=== PATIENT | female | born 1950 | race Hispanic/Latino ===

== ENCOUNTER 2017-12-13 17:11 | Inpatient (IN) | payer SELFPAY ==
[2017-12-13 19:10] LABS: Absolute Lymphocytes (CBC) 1.3 K/uL (0.7-4.9); Absolute Monocytes 0.6 K/uL (0.1-1.3); Absolute Neutrophil 4.5 K/uL (1.8-8.0); Basophils % 0.8 % (0-1.3); Eosinophils % 1.9 % (0-4.4); Lymphocytes % 19.9 % (15.3-44.8); MCH 27.5 pg (27.0-35.0); MCV 83.3 fL (80-100); MPV 9.4 fL (7.6-11.3); Monocytes % 9.6 % (3.3-12.3); RBC Red Blood Cell Count 4.81 M/uL (3.86-4.86)
[2017-12-13 19:14] LABS: Protime INR 1.16
[2017-12-13 19:20] LABS: BUN Blood Urea Nitrogen 9 mg/dL (6-20); Bicarbonate 28 mEq/L (21-31); Glucose Level 109 mg/dL (65-120); Potassium 3.5 mEq/L (3.6-5.0); Sodium Level 136 mEq/L (135-145)
--- NOTE | 2017-12-13 19:54 | ER ---
Nurse's Notes [facility] Name: Roxana Pope Age: 67 yrs Sex: Female : 1950 Arrival Date: 12/13/2017 Time: 17:16 Bed 16 Private MD: Diagnosis: Dyspnea;Pleural effusion, not elsewhere classified Presentation: 12/13 17:29 Presenting complaint: Patient states: "The doctor told me I have fluid in my lungs on lk1 my Xray today". Transition of care: patient was not received from another setting of care. Onset of symptoms is unknown. Risk Assessment: Do you want to hurt yourself or someone else? Patient reports no desire to harm self or others. Initial Sepsis Screen: Does the patient meet any 2 criteria? No. Patient's initial sepsis screen is negative. Does the patient have a suspected source of infection? No. Patient's initial sepsis screen is negative. Care prior to arrival: None. 17:29 Method Of Arrival: Ambulatory lk1 17:29 Acuity: AAKASH 3 lk1 Historical: - Allergies: 17:30 No Known Allergies; lk1 - PMHx: 17:30 Hypertension; lk1 - PSHx: 17:30 Hernia repair; lk1 - Immunization history:: Adult Immunizations up to date. - Social history:: Smoking status: Patient/guardian denies using tobacco. Screenin:29 Abuse screen: Denies threats or abuse. Denies injuries from another. Nutritional jl7 screening: No deficits noted. Tuberculosis screening: No symptoms or risk factors identified. 19:05 Fall Risk IV access (20 points). ea Assessment: 18:27 General: Appears in no apparent distress. uncomfortable, Behavior is calm, cooperative, jl7 appropriate for age. Pain: Denies pain. Neuro: Level of Consciousness is awake, alert, obeys commands, Oriented to person, place, time, situation. Cardiovascular: Heart tones S1 S2 present. Respiratory: Airway is patent Respiratory effort is even, labored, Respiratory pattern is symmetrical, tachypnea Breath sounds with crackles in right upper lobe. GI: No signs and/or symptoms were reported involving the gastrointestinal system. : No signs and/or symptoms were reported regarding the genitourinary system. EENT: No signs and/or symptoms were reported regarding the EENT system. Derm: Skin is pink, warm \\T\\ dry. Musculoskeletal: No signs and/or symptoms reported regarding the musculoskeletal system. 19:05 General: Appears in no apparent distress. Behavior is calm, cooperative, appropriate ea for age. Pain: Denies pain. Neuro: Level of Consciousness is awake, alert, obeys commands, Oriented to person, place, time, situation. Cardiovascular: Heart tones S1 S2 present Patient's skin is warm and dry. Respiratory: Airway is patent Respiratory effort is even, unlabored, Respiratory pattern is regular, symmetrical, pt on O2 at 2 L per nc tolerating well Breath sounds with crackles in right upper lobe, left posterior upper lobe and right posterior middle lobe. GI: No signs and/or symptoms were reported involving the gastrointestinal system. : No signs and/or symptoms were reported regarding the genitourinary system. EENT: No signs and/or symptoms were reported regarding the EENT system. Derm: Skin is pink, warm \\T\\ dry. Musculoskeletal: No signs and/or symptoms reported regarding the musculoskeletal system. 20:36 Reassessment: Patient and/or family updated on plan of care and expected duration. Pain ea level reassessed. Patient is alert, oriented x 3, equal unlabored respirations, skin warm/dry/pink. Patient denies pain at this time. 21:11 Reassessment: Patient and/or family updated on plan of care and expected duration. Pain ea level reassessed. Patient is alert, oriented x 3, equal unlabored respirations, skin warm/dry/pink. Patient denies pain at this time. 22:11 Reassessment: Patient and/or family updated on plan of care and expected duration. Pain ea level reassessed. Patient is alert, oriented x 3, equal unlabored respirations, skin warm/dry/pink. Family at bedside. Patient denies pain at this time. 22:49 Reassessment: Report called to Fiona on 4th floor. Reassessment: Patient and/or family ea updated on plan of care and expected duration. Pain level reassessed. Patient is alert, oriented x 3, equal unlabored respirations, skin warm/dry/pink. Family at bedside. Patient denies pain at this time. Vital Signs: 17:32 BP 132 / 80; Pulse 101; Resp 20; Temp 98.0(TE); Pulse Ox 93% on R/A; Weight 76.2 kg lk1 (R); Height 4 ft. 11 in. (149.86 cm) (R); Pain 0/10; 18:27 BP 144 / 84; Pulse 96; Resp 26; Pulse Ox 96% on 2 lpm NC; jl7 19:00 BP 150 / 89; Pulse 93; Resp 19 S; Pulse Ox 98% on R/A; Pain 0/10; ea 20:39 BP 132 / 82; Pulse 94; Resp 18; Pulse Ox 99% ; ea 21:00 BP 141 / 86; Pulse 90; Resp 18; Pulse Ox 97% on 2 lpm NC; Pain 0/10; ea 22:12 BP 136 / 85; Pulse 92; Resp 18; Pulse Ox 98% on 2 lpm NC; Pain 0/10; ea 17:32 Body Mass Index 33.93 (76.20 kg, 149.86 cm) lk1 ED Course: 17:16 Patient arrived in ED. mr 17:29 Triage completed. lk1 17:34 Arm band placed on right wrist. lk1 18:05 Cali Boudreaux RN is Primary Nurse. jl7 18:08 Ceferino Marcano MD is Attending Physician. gs 19:04 Initial lab(s) drawn, by fl, sent to lab. Inserted saline lock: 20 gauge in left jl7 antecubital area, using aseptic technique. Blood collected. 19:05 Patient has correct armband on for positive identification. Bed in low position. Call jl7 light in reach. Side rails up X 1. Pulse ox on. NIBP on. 19:08 Report given to JESUS Alcantara. [facility] 19:53 Erinn Mendiola MD is Hospitalizing Provider. gs 19:[address] 2 20:10 CT Chest Wo Con In Process Unspecified. EDMS 21:53 Primary Nurse role handed off by Cali Boudreaux RN rg2 21:54 Maricruz Belcher RN is Primary Nurse. ea 22:02 No provider procedures requiring assistance completed. Patient admitted, IV remains in ea place. Administered Medications: No medications were administered Outcome: 19:53 Decision to Hospitalize by Provider. gs 20:00 Admitted to Med/surg accompanied by tech, via wheelchair, room 413, with chart, Report ea called to Fiona LEE 20:00 Instructed on the need for admit. 22:50 Condition: stable ea 22:59 Patient left the ED. ea Signatures: Dispatcher [employer] EDMS Ari Lane 2 Arely Marcus mr Silvia Richardson, RN RN lk1 Cali Boudreaux RN RN jl7 Yvonne Anderson 2 Maricruz Belcher RN RN ea Starr, Gregory, MD MD gs
--- NOTE | 2017-12-13 19:54 | EDPHYS ---
Physician Documentation [facility] Name: Roxana Pope Age: 67 yrs Sex: Female : 1950 Arrival Date: 12/13/2017 Time: 17:16 Bed 16 Private MD: ED Physician Ceferino Marcano HPI: 12/13 20:09 This 67 yrs old Female presents to ER via Ambulatory with complaints of gs Abnormal Lab Results. 20:09 The patient has shortness of breath at rest, during heavy activity. Onset: The gs symptoms/episode began/occurred 1 week(s) ago, and became persistent. Duration: The symptoms are continuous. The patient's shortness of breath is aggravated by exertion. Associated signs and symptoms: Pertinent positives: non-productive cough. Severity of symptoms: At their worst the symptoms were severe in the emergency department the symptoms have improved moderately. The patient has not experienced similar symptoms in the past. The patient has been recently seen by a physician: the patient's primary care provider. Historical: - Allergies: 17:30 No Known Allergies; lk1 - PMHx: 17:30 Hypertension; lk1 - PSHx: 17:30 Hernia repair; lk1 - Immunization history:: Adult Immunizations up to date. - Social history:: Smoking status: Patient/guardian denies using tobacco. ROS: 20:15 All other systems are negative. gs Exam: 20:15 Head/Face: Normocephalic, atraumatic. Eyes: Pupils equal round and reactive to light, gs extra-ocular motions intact. Lids and lashes normal. Conjunctiva and sclera are non-icteric and not injected. Cornea within normal limits. Periorbital areas with no swelling, redness, or edema. ENT: Nares patent. No nasal discharge, no septal abnormalities noted. Tympanic membranes are normal and external auditory canals are clear. Oropharynx with no redness, swelling, or masses, exudates, or evidence of obstruction, uvula midline. Mucous membranes moist. Neck: Trachea midline, no thyromegaly or masses palpated, and no cervical lymphadenopathy. Supple, full range of motion without nuchal rigidity, or vertebral point tenderness. No Meningismus. Chest/axilla: Normal chest wall appearance and motion. Nontender with no deformity. No lesions are appreciated. Cardiovascular: Regular rate and rhythm with a normal S1 and S2. No gallops, murmurs, or rubs. Normal PMI, no JVD. No pulse deficits. Abdomen/GI: Soft, non-tender, with normal bowel sounds. No distension or tympany. No guarding or rebound. No evidence of tenderness throughout. Back: No spinal tenderness. No costovertebral tenderness. Full range of motion. Skin: Warm, dry with normal turgor. Normal color with no rashes, no lesions, and no evidence of cellulitis. MS/ Extremity: Pulses equal, no cyanosis. Neurovascular intact. Full, normal range of motion. Neuro: Awake and alert, GCS 15, oriented to person, place, time, and situation. Cranial nerves II-XII grossly intact. Motor strength 5/5 in all extremities. Sensory grossly intact. Cerebellar exam normal. Normal gait. 20:15 Constitutional: The patient appears alert, awake. 20:15 ECG was reviewed by the Attending Physician. 20:15 Respiratory: Breath sounds: decreased breath sounds, that are moderate, are heard in the right posterior lower lobe. Vital Signs: 17:32 BP 132 / 80; Pulse 101; Resp 20; Temp 98.0(TE); Pulse Ox 93% on R/A; Weight 76.2 kg lk1 (R); Height 4 ft. 11 in. (149.86 cm) (R); Pain 0/10; 18:27 BP 144 / 84; Pulse 96; Resp 26; Pulse Ox 96% on 2 lpm NC; jl7 19:00 BP 150 / 89; Pulse 93; Resp 19 S; Pulse Ox 98% on R/A; Pain 0/10; ea 20:39 BP 132 / 82; Pulse 94; Resp 18; Pulse Ox 99% ; ea 21:00 BP 141 / 86; Pulse 90; Resp 18; Pulse Ox 97% on 2 lpm NC; Pain 0/10; ea 22:12 BP 136 / 85; Pulse 92; Resp 18; Pulse Ox 98% on 2 lpm NC; Pain 0/10; ea 17:32 Body Mass Index 33.93 (76.20 kg, 149.86 cm) lk1 MDM: 18:30 Patient medically screened. gs 20:15 Differential diagnosis: CHF exacerbation, Chronic Obstructive Pulmonary Disease gs Myocardial Infarction pneumonia. Data reviewed: vital signs, nurses notes, old medical records. 12/13 18:42 Order name: Basic Metabolic Panel; Complete Time: 19:51 gs 12/13 18:42 Order name: BNP; Complete Time: 19:51 12/13 18:42 Order name: CBC with Diff; Complete Time: 19:51 12/13 18:42 Order name: PT-INR; Complete Time: 19:51 gs 12/13 18:42 Order name: Troponin (emerg Dept Use Only); Complete Time: 19:51 12/13 21:15 Order name: CBC with Automated Diff EDMS 12/13 21:15 Order name: CBC with Automated Diff EDMS 12/13 21:15 Order name: Comprehensive Metabolic Panel EDMS 12/13 21:15 Order name: Comprehensive Metabolic Panel EDMS 12/13 21:15 Order name: Magnesium EDMS 12/13 21:15 Order name: Magnesium EDMS 12/13 21:15 Order name: Phosphorus EDMS 12/13 21:15 Order name: Phosphorus EDMS 12/13 21:15 Order name: Protime (+INR) EDDE 12/13 18:42 Order name: EKG; Complete Time: 18:43 12/13 18:42 Order name: Cardiac monitoring; Complete Time: 21:04 12/13 18:42 Order name: EKG - Nurse/Tech; Complete Time: 19:30 12/13 18:42 Order name: IV Saline Lock; Complete Time: 19:30 12/13 18:42 Order name: Labs collected and sent; Complete Time: 19:30 12/13 18:42 Order name: O2 Per Protocol; Complete Time: 19:30 12/13 18:42 Order name: O2 Sat Monitoring; Complete Time: 19:30 12/13 19:45 Order name: CT Chest Wo Con 12/13 21:14 Order name: CONS Pharmacy Consult EDDE 12/13 21:15 Order name: CONS Physician Consult EDDE 12/13 21:15 Order name: NPO EDDE 12/13 21:15 Order name: Protime (+INR) EDDE 12/13 21:15 Order name: PTT, Activated Partial Thromb EDMS 12/13 21:15 Order name: PTT, Activated Partial Thromb EDDE EC:15 Rate is 90 beats/min. Rhythm is regular. PA interval is normal. QRS interval is normal. gs T waves are Normal. No ST changes noted. Clinical impression: Normal ECG. Interpreted by me. Administered Medications: No medications were administered Disposition: 12/13/17 19:53 Hospitalization ordered by Erinn Mendiola for Observation. Preliminary diagnosis are Dyspnea, Pleural effusion, not elsewhere classified. - Bed requested for Telemetry/MedSurg (observation). - Status is Observation. ea - Condition is Stable. - Problem is new. - Symptoms are unchanged. UTI on Admission? No Signatures: Dispatcher [employer] EDAna Mckeon RN RN Silvia Rossi RN RN lk1 Maricruz Belcher RN RN Ceferino Issa MD MD gs Corrections: (The following items were deleted from the chart) 21:34 19:53 Hospitalization Ordered by Erinn Mendiola MD for Observation. Preliminary bb diagnosis is Dyspnea; Pleural effusion, not elsewhere classified. Bed requested for Telemetry/MedSurg (observation). Status is Observation. Condition is Stable. Problem is new. Symptoms are unchanged. UTI on Admission? No. gs 22:59 21:34 12/13/2017 19:53 Hospitalization Ordered by Erinn Mendiola MD for Observation. ea Preliminary diagnosis is Dyspnea; Pleural effusion, not elsewhere classified. Bed requested for Telemetry/MedSurg (observation). Status is Observation. Condition is Stable. Problem is new. Symptoms are unchanged. UTI on Admission? No. bb
--- NOTE | 2017-12-13 20:24 | RAD REPORT ---
EXAM DESCRIPTION: CT - Thorax Wo Con CLINICAL HISTORY: Pleural effusion. COMPARISON: None FINDINGS: Significant right breast skin thickening is noted. An irregular mass is seen in the upper outer right breast measuring 7 cm, partially imaged on this study. This is most certainly malignant i n etiology. Right axillary lymphadenopathy seen. A large right pleural effusion is noted. Multiple pleural based masses are present bilaterally compat ible with pleural metastasis. Adenopathy is seen in the mediastinum and hilum, largest in the pretrac heal space measuring 19 mm, AP window measuring 11 mm and subcarinal space measuring 13 mm. Several e nlarged lymph nodes are seen at the base of the neck. No lytic or blastic bone lesion. Cholecystectomy clips. All CT scans are performed using dose optimization technique as appropriate and may include automated exposure control or mA/KV adjustment according to patient size. IMPRESSION: Large irregular right breast mass compatible with breast malignancy. Metastatic disease to the pleural is suspected. Large right pleural effusion, also presumably metasta tic in origin. 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
[2017-12-13] MEDS ORDERED: ACETAMINOPHEN 500 MG TAB PO PRN (21:08)
[2017-12-13] MEDS ORDERED: ONDANSETRON 4 MG/2 ML VIAL IV PRN (21:08)
[2017-12-13] MEDS ORDERED: NA CHLORIDE 0.9% 1,000 ML IV SCH (22:00)
[2017-12-14] MEDS ORDERED: LIDOCAINE 1% 20 ML MDV ONE (00:03)
[2017-12-14 00:22] LABS: Urine Appearance CLEAR; Urine Bilirubin NEGATIVE (NEG); Urine Blood NEGATIVE (NEG); Urine Color YELLOW; Urine Glucose NEGATIVE (NEG); Urine Protein NEGATIVE (NEG); Urine pH 7.5 (5.0-7.0)
[2017-12-14 00:23] LABS: Urine Microscopic Reflex NO UMIC
[2017-12-14 00:37] VITALS: BMI 33.0
[2017-12-14] MEDS ORDERED: NA CHLORIDE 0.9% 1,000 ML IV SCH (02:00)
[2017-12-14 04:16] LABS: Protime INR 1.16
[2017-12-14 04:28] LABS: Absolute Lymphocytes (CBC) 1.4 K/uL (0.7-4.9); Absolute Monocytes 0.6 K/uL (0.1-1.3); Absolute Neutrophil 3.7 K/uL (1.8-8.0); Basophils % 1.1 % (0-1.3); Eosinophils % 1.9 % (0-4.4); Hematocrit 37.7 % (36.0-45.0); Lymphocytes % 23.9 % (15.3-44.8); MCH 27.7 pg (27.0-35.0); MCV 83.2 fL (80-100); MPV 9.5 fL (7.6-11.3); Monocytes % 9.9 % (3.3-12.3); RBC Red Blood Cell Count 4.53 M/uL (3.86-4.86)
[2017-12-14 04:45] VITALS: O2SAT 96
[2017-12-14 04:55] LABS: ALT/SGPT 28 IU/L (10-60); AST/SGOT 34 IU/L (10-42); Albumin 3.3 g/dL (3.2-5.5); Alkaline Phosphatase 70 IU/L (42-121); BUN Blood Urea Nitrogen 8 mg/dL (6-20); Bicarbonate 30 mEq/L (21-31); Bilirubin Total 0.7 mg/dL (0.3-1.2); Glucose Level 99 mg/dL (65-120); Magnesium 1.8 mg/dL (1.8-2.5); Potassium 3.5 mEq/L (3.6-5.0); Protein, Total 6.8 g/dL (6.0-8.3); Sodium Level 137 mEq/L (135-145)
[2017-12-14] MEDS ORDERED: MAGNESIUM SULFATE 1 gm IVPB 1 GM/100 ML BAG IV ONE (05:06)
[2017-12-14] MEDS ORDERED: KCL 20 MEQ/100 mL IVPB 20 MEQ/100 ML BAG IV SCH (06:00)
--- NOTE | 2017-12-14 06:56 | EKG ---
Test Date: 2017-12-13 Test Time: 19:15:58 Processing Clerk: IRENE MEASUREMENT RESULTS: Intervals: Rate: 90 [place]: 116 QRSD: 64 QT: 358 QTc: 437 [place]: P: 37 [place]: 116 QRS: 11 T: 31 INTERPRETIVE STATEMENTS: Normal sinus rhythm Normal ECG No previous ECG available for comparison Electronically Signed On 12-14-17 06:55:35 CDT by Owen Hernandez
[2017-12-14] MEDS ORDERED: PNEUMOCOCCAL VACCINE 0.5 ML IMVAC ONE (08:00)
--- NOTE | 2017-12-14 08:08 | P.CNS ---
Date of Consult: 12/14/17 Chief Complaint: Pleural effusion History of Present Illness: Patient is 67 years of age in complaining of cough and shortness of breath since April shortness of breath has worsened she is following up a clinic at [place] was found to have a pleural effusion is also noticed this right-sided breast mass which is no ulcerating no other medical history she does not take any medications at home denies any chest pain fever or weight loss Allergies No Known Allergies Allergy (Verified 12/14/17 00:09) Home Medications: Amlodipine [Norvasc] 10 mg PO DAILY 12/14/17 - Past Medical/Surgical History Diabetic: No -: Hypertension -: Hernia repair -: Cholecystectomy - Family History Sister Medical History: Heart disease Brother Medical History: Heart disease, Diabetes Father Medical History: Heart disease Uncle Medical History: Heart disease - Social History Alcohol use: No CD- Drugs: No Caffeine use: Yes Place of Residence: Home Review of Systems 10-point ROS is otherwise unremarkable Physical Examination Temp Pulse Resp BP Pulse Ox 97.6 F 85 18 153/73 H 96 12/14/17 04:00 12/14/17 04:00 12/14/17 04:00 12/14/17 04:00 12/14/17 04:00 General: Alert, Oriented x3 HEENT: Atraumatic Neck: Supple Respiratory: Diminished (Diminished air entry on the right side dull to percussion), Other (Patient has a ulcerating a right-sided below the axilla breast mass) Cardiovascular: No edema, Regular rate/rhythm Gastrointestinal: Normal bowel sounds, Soft and benign Laboratory Data (last 24 hrs) 12/13/17 19:00: PT 13.7 H, INR 1.16 12/13/17 19:00: WBC 6.6, Hgb 13.2, Hct 40.0, Plt Count 231 12/13/17 19:00: B-Natriuretic Peptide 16 12/13/17 19:00: Sodium 136, Potassium 3.5 L, BUN 9, Creatinine 0.47, Glucose 109 - Problems (1) Pleural effusion Current Visit: Yes Status: Acute Plan: Patient is 67 years of age admitted with a cough shortness of breath she has a significant effusion on the right side in addition to her right sided breast mass most likely this is metastatic breast cancer for large volume thoracentesis discussed with the patient risk and benefit of thoracentesis and she agrees (2) Breast cancer Current Visit: Yes Status: Acute Plan: Patient has a right-sided upper outer quadrant breast mass which is ulcerating through the skin most likely breast cancers need a surgical an oncology consult labs reviewed mildly hypokalemic vital signs appeared to be stable Qualifiers: Breast location: upper outer quadrant of breast Patient sex: female Laterality: right
[2017-12-14] MEDS ORDERED: Morphine 2 MG/2 ML SYR IV PRN (08:14)
[2017-12-14] MEDS ORDERED: VANCOMYCIN/NS 1 gm 1 GM/250 ML BAG IVPB SCH (08:15)
--- NOTE | 2017-12-14 08:23 | P.HP ---
Certification for Inpatient Patient admitted to: Inpatient With expected LOS: >2 Midnights Patient will require the following post-hospital care: None Practitioner: I am a practitioner with admitting privileges, knowledge of patient current condition, hospital course, and medical plan of care. Services: Services provided to patient in accordance with Admission requirements found in Title 42 Section 412.3 of the Code of Federal Regulations Patient History Date of Service: 12/13/17 Reason for admission: Shortness of breath History of Present Illness: Patient is a 67-year-old female who is noted to have a breast in the right upper quadrant of her breast tissue since May. Since that time the lesion has grown. She has not wanted to see anyone because she was a little concerned and she tries to take care of everything by herself. The mass would not get better. It has slowly worsened. She noticed it was ulcerating and put a Band- Aid over it. The mass has grown to a size of about 8 x 7 cm. It appears to be protruding about 3 cm from the skin. She went to see the PA at the [facility] when she was getting some shortness of breath. Her breathing was not improving and an x-ray revealed a pleural effusion which caused her to be sent to the emergency room. In the emergency room she had a CT scan which revealed a large right breast mass as well as a large malignant pleural effusion. This was not loculated and patient was admitted to our hospital for further evaluation. Patient has been seen by a loop tender in the past. She has had Pap smears and mammograms which have not shown any abnormality. She felt she was going to be fine. She did feel the mass in May but she did not feel that it was something that needed any kind of intervention. She never went to see a doctor after feeling the mass 8 months ago. Will go ahead and consult Pulmonary and Oncology. Will discuss with Oncology regarding plan of care regarding the mass. Patient may need an excisional biopsy and if this is the case we will consult General surgery for further evaluation. At this time will wait for Oncology recommendation as patient appears to have a stage IV breast cancer with a malignant pleural effusion. As far as the breast cancer goes, the tissue type remains uncertain at this time. Allergies No Known Allergies Allergy (Verified 12/14/17 00:09) Home Medications: Amlodipine [Norvasc] 10 mg PO DAILY 05/22/18 - Past Medical/Surgical History Has patient received pneumonia vaccine in the past: No Diabetic: No -: Hypertension -: Hernia repair -: Cholecystectomy - Family History Sister Medical History: Heart disease Brother Medical History: Heart disease, Diabetes Father Medical History: Heart disease Uncle Medical History: Heart disease - Social History Smoking Status: Never smoker Alcohol use: No CD- Drugs: No Caffeine use: Yes Place of Residence: Home Review of Systems 10-point ROS is otherwise unremarkable Physical Examination - Vital Signs Temperature: 97.7 F Blood Pressure: 143/83 Pulse: 84 Respirations: 16 Pulse Ox (%): 97 - Physical Exam General: Alert, In no apparent distress, Oriented x3 HEENT: Atraumatic, Normocephalic Neck: Supple, 2+ carotid pulse no bruit, JVD not distended, No Thyromegaly Respiratory: Diminished (right), Crackles/rales (right) Cardiovascular: Regular rate/rhythm, Normal S1 S2, No murmurs Capillary refill: <2 Seconds Gastrointestinal: Normal bowel sounds, Soft and benign, Non-distended, No ascites Musculoskeletal: No clubbing, No swelling, No contractures Integumentary: No rashes, No breakdown, No erythema Neurological: Normal gait, Normal speech, Normal strength at 5/5 x4 extr, Normal tone, Sensation intact, Cranial nerves 3-12 intact Lymphatics: No axilla or inguinal lymphadenopathy - Studies Laboratory Data (last 24 hrs) 12/13/17 19:00: PT 13.7 H, INR 1.16 12/13/17 19:00: WBC 6.6, Hgb 13.2, Hct 40.0, Plt Count 231 12/13/17 19:00: B-Natriuretic Peptide 16 12/13/17 19:00: Sodium 136, Potassium 3.5 L, BUN 9, Creatinine 0.47, Glucose 109 Female Exam - Breasts Breasts: Other ( patient with a large 8 x 7 cm mass) Assessment & Plan - Problems (Diagnosis) (1) Breast mass Current Visit: Yes Status: Acute (2) Pleural effusion, malignant Current Visit: Yes Status: Acute (3) Ulcer of skin of breast Current Visit: Yes Status: Acute - Plan Plan: 1. We will go ahead and consult Pulmonary as patient has a large pleural effusion. May need to get this drained and sent off for cytology. 2. I will also consult Oncology to determine how best to proceed with the breast mass. Patient will probably need an excisional biopsy. However, it appears patient has stage IV breast cancer without malignant pleural effusion. I am not sure if that would advise radiation and chemo prior to proceeding with surgical intervention. 3. Continue with antibiotics as patient has ulcerated breast mass 4. GI/DVT prophylaxis Discharge Plan: Home Plan to discharge in: Greater than 2 days - Advance Directives Does patient have a Living Will: No Does patient have a Durable POA for Healthcare: No - Code Status/Comfort Care Code Status Assessed: Yes Code Status: Full Code Critical Care: No Time Spent Managing PTS Care (In Minutes): 50
[2017-12-14] MEDS ORDERED: ENOXAPARIN 40 MG/0.4 ML SQ SCH (09:00)
[2017-12-14] MEDS ORDERED: VANCOMYCIN 1.75 GM in NA CHLORIDE 0.9% 500 ML IVPB SCH (09:00)
[2017-12-14] MEDS ORDERED: AMLODIPINE 10 MG TAB PO SCH (09:00)
--- NOTE | 2017-12-14 12:27 | P.OP ---
Date of Service: 12/14/17 (Right-sided large volume thoracentesis) Findings and Operative Technique Patient is 67 years of age admitted with cough shortness of breath large pleural effusion on the right side in addition to a right-sided breast mass Narrative report after obtaining informed consent from the patient using ultrasonic guidance, aseptic technique and a size 7 safety thoracentesis catheter approximately 1 L of straw-colored fluid was aspirated procedure terminated due to chest discomfort and cough specimen has been sent off for chemistries and cytology including Gram stain postoperative chest x-ray in 2 hr Patient to follow up with Oncology next week for markers as per Oncology
--- NOTE | 2017-12-14 12:45 | RAD REPORT ---
EXAM DESCRIPTION: US - Chest - 12/14/2017 12:38 pm FINDINGS: Sonographic assessment of the known right pleural effusion was performed. Exam was perform ed in conjunction with the referring physician for localization of chest tube placement.
[2017-12-14 13:24] LABS: Body Fluid WBC 1007 /mm^3
--- NOTE | 2017-12-14 13:45 | P.SSS ---
Patient History Date of Service: 12/14/17 Primary Care Provider: None Reason for admission: Shortness of breath Allergies No Known Allergies Allergy (Verified 12/14/17 00:09) Home Medications: Amlodipine [Norvasc*] 10 mg PO DAILY 12/14/17 - Past Medical/Surgical History Has patient received pneumonia vaccine in the past: No Diabetic: No -: Hypertension -: Hernia repair -: Cholecystectomy - Family History Sister -: Heart disease Brother -: Heart disease, Diabetes Father -: Heart disease Uncle -: Heart disease - Social History Smoking Status: Never smoker Alcohol use: No CD- Drugs: No Caffeine use: Yes Place of Residence: Home Review of Systems General: As per HPI Physical Examination - Vital Signs Temperature: 97.1 F Blood Pressure: 150/70 Pulse: 90 Respirations: 18 Pulse Ox (%): 98 - Physical Exam General: Alert, In no apparent distress HEENT: Atraumatic Neck: Supple, 2+ carotid pulse no bruit Respiratory: Normal air movement, Crackles/rales Cardiovascular: Regular rate/rhythm, Normal S1 S2 Gastrointestinal: Normal bowel sounds, Soft and benign, Non-distended, No tenderness Musculoskeletal: No tenderness Integumentary: No rashes Neurological: Normal gait, Normal speech, Normal strength at 5/5 x4 extr, Normal tone, Normal affect Lymphatics: Axilla lymphadenopathy Other Physical/Emotional Findings: Breast Exam - Right side with Red mass at the Midaxillary line. Mass is ulcerative without any discharge. Tenderness noted as well. - Studies Laboratory Data (last 24 hrs) 12/13/17 19:00: PT 13.7 H, INR 1.16 12/13/17 19:00: WBC 6.6, Hgb 13.2, Hct 40.0, Plt Count 231 12/13/17 19:00: B-Natriuretic Peptide 16 12/13/17 19:00: Sodium 136, Potassium 3.5 L, BUN 9, Creatinine 0.47, Glucose 109 - Diagnosis (Problem(s)) (1) Ulcer of skin of breast Onset Date: 12/14/17 Current Visit: Yes Status: Acute (2) Pleural effusion, malignant Onset Date: 12/14/17 Current Visit: Yes Status: Acute (3) Breast mass Onset Date: 12/14/17 Current Visit: Yes Status: Acute Treatment Summary: Overall during the hospital stay patient remained stable Patient was initially admitted to the hospital for dyspnea most likely secondary to malignant purulent effusion. Patient had a CT scan of the chest done which was consistent with metastatic disease. Patient has a ulcerative mass on the right breast in the mid axillary region. Most likely invasive ductal carcinoma. Patient had thoracentesis done here with pulmonology. Thoracentesis fluid was sent for cytology for diagnosis and staging purposes. Oncology was consulted who recommended patient have outpatient follow up in case the thoracentesis is non diagnostic patient will need a biopsy done for her breast mass. We will follow patient's lab results along with pulmonology. Patient was discharged home after the thoracentesis and was asked to follow up with pulmonology and oncology in about 1 week. - Disposition Disposition: ROUTINE DISCHARGE Condition: GOOD Diet: Regular Activity: Ad rose mary
[2017-12-14 14:08] LABS: Appearance SLT. TURBID (CLEAR); Body Fluid Source PLEURAL; Color of fluid Orange (COLORLESS)
--- NOTE | 2017-12-14 14:40 | RAD REPORT ---
EXAM DESCRIPTION: RAD - Chest Single View - 12/14/2017 2:27 pm CLINICAL HISTORY: Pleural effusion, thoracentesis COMPARISON: CT chest December 13 TECHNIQUE: AP portable chest image was obtained in expiration at 1414 hours . FINDINGS: No pneumothorax is identified. Right pleural effusion has been partially drained. There is moderate pleural fluid remaining. No significant left-sided pleural effusion. Trachea is midline. Pa tchy interstitial and alveolar opacities are present in the aerated portions of the right upper lung field. Remnant atelectasis present on the right. Heart size is normal range. IMPRESSION: No post thoracentesis pneumothorax. Prominent underlying lung parenchyma and vasculature. This is probably residual atelectasis on the ri ght. A mild failure or volume overload component is not excluded.
--- NOTE | 2017-12-14 16:08 | P.CNS ---
Date of Consult: 12/14/17 (ONCOLOGY) REASON FOR CONSULTATION: Breast mass/ pleural effusion. HPI: Patient is a 67-year-old woman who presents with worsening SOB. She was noted to have a large right pleural effusion on imaging. She reports noticing a right breast mass sometime in May but was apprehensive to seek medical attention. She reports not having a mammogram for many years. The mass eventually grew in size eventually invading the skin. She was admitted for further management for the pleural effusion for symptomatic relief. She was seen today at around 12.30 pm. Her 3 daughters, son and at bedside. She just had returned from the thoracentesis. Pleural fluid has been sent for cytology evaluation. She feels symptomatically better. Denies any pain , chest pains, cough, abd pains, N/V/D, headaches, blurry vision, gait/balance problems. a 14 point ROS was done and pertinent points as in HPI. No Known Allergies Allergy Home Medications: Amlodipine [Norvasc] 10 mg PO DAILY 12/14/17 - Past Medical/Surgical History -: Hypertension -: Hernia repair -: Cholecystectomy - Family History Denies any FH of breast cancer or any malignancies in the immediate first/ second degree relatives. - Social History Denies smoking, alcohol or drugs. Physical Examination - Vital Signs Temperature: 97.7 F Blood Pressure: 143/83 Pulse: 84 Respirations: 16 Pulse Ox (%): 97 - Physical Exam General: Alert, In no apparent distress, Oriented x3; ECOG 1 HEENT: Atraumatic, Normocephalic, no pallor, no icterus, mmm Neck: Supple, no bruit, JVD not distended, No thyromegaly Respiratory: Diminished (right), Crackles/rales (right) Cardiovascular: Regular rate/rhythm, Normal S1 S2, No murmurs Gastrointestinal: Normal bowel sounds, Soft and benign, Non-distended, No ascites Musculoskeletal: No clubbing, No swelling, No contractures Integumentary: No rashes, No breakdown, No erythema Neurological: Normal gait, Normal speech, Normal strength at 5/5, Normal tone, Sensation intact, Cranial nerves 3-12 intact Lymphatics: No axilla or inguinal lymphadenopathy Breast: Large right breast mass 6cm, fungating with skin involvement; axillary LAD+ LABS: PT 13.7 H, INR 1.16 WBC 6.6, Hgb 13.2, Hct 40.0, Plt Count 231 B-Natriuretic Peptide 16 Sodium 136, Potassium 3.5 L, BUN 9, Creatinine 0.47, Glucose 109 Assessment/Recommendations: 1. Right breast mass with large pleural effusion: Clinically presentation concerning for malignancy highly likely from the breast. She had thoracentesis now with symptomatic improvement. Cytology sent for diagnostic pathology review. Will follow up path reports and hormone receptor/Her2 farida status as well. In the event of poor yield from the cytology, she will need biopsy of the breast mass or from the lung lymphadenoapthy. Discussed about the need for further follow up and treatment without delay. She understands the risk of further disease progression if no treatment. Explained that this is likely stage IV disease for which cure is not possible. Treatment will be aimed with a palliative intent. She will follow up with me as outpatient for further care. Also advised to follow up with pulmonary as well. Cancer center contact details given to patient. Discussed with Dr Padilla.
[2017-12-14 16:27] VITALS: BP 131/63; TEMP 97
== END 2017-12-14 17:44 | disposition home or self-care (01) | DRG 598 ==
LOC: ER 17:11 → ERHOLD 21:21 → 4TH 21:55
PROVIDERS: ADMIT Hospitalist; ATTEND Hospitalist
PROC: 0W993ZX Drainage of Right Pleural Cavity, Percutaneous Approach, Diagnostic (ICD-10-PCS; principal; 2017-12-14)
DX: C50.911 Malignant neoplasm of unspecified site of right female breast (principal); J91.0 Malignant pleural effusion; I10 Essential (primary) hypertension
CPT/HCPCS: 36415; 71045; 71250; 76604; 80048; 80053; 81003; 83735; 83880; 84100; 84484; 85025; 85610; 85730; 87015; 87070; 87102; 87116; 87206; 88108; 88305; 89050; 93005; 99285; J3475; J7030

== ENCOUNTER → 2017-12-30 | Day surgery (SDC) | payer OTHER, SELFPAY ==
--- NOTE | 2017-12-30 11:57 | RAD REPORT ---
EXAM DESCRIPTION: US - Follow Up Breast Axilla Ltd - 12/30/2017 10:35 am CLINICAL HISTORY: Right breast mass. COMPARISON: Mammogram December 27, 2017. FINDINGS: A large 6-8 cm macrolobulated heterogeneous solid mass is identified as the correlate to t he prior examination. No definitive satellite lesion is identified. Imaging of the axilla failed to i dentify any clearly pathologic axillary lymph nodes. The mass extends through the skin surface. There is a congested or edematous appearance to the skin of the upper right breast. IMPRESSION: 1. Large 6-8 cm macrolobulated malignant mass of the right breast extending through the skin surface. 2. No clearly pathologic lymph nodes. BI-RAD: Category 4 suspicious ResultCode: S Category Diagnosis 0 = Incomplete: Needs Additional Imaging Evaluation, 1 = Negative, 2 = Benign, 3 = Probably Benign, 4 = Suspicious Abnormality, 5 = Highly Suspicious of Malignancy, 6 = Known Biop sy Proven Malignancy.
--- NOTE | 2017-12-30 12:14 | RAD REPORT ---
EXAM DESCRIPTION: US - Breast Core BX w/US Guidance - 12/30/2017 10:55 am CLINICAL HISTORY: Large right breast mass. COMPARISON: Ultrasound same date, mammography December 27, 2017. TECHNIQUE: Ultrasound-guided biopsy procedure, risks and alternatives were discussed with the patien t in detail. Oral and written consent were obtained. Time out procedure was performed. The patient mcknight d no contraindicated allergy or medication history. Preliminary imaging again identified a large right upper quadrant breast mass. Right breast skin was prepped and draped in the usual sterile fashion. At the inferior margin of the mass, skin and deeper tissues were anesthetized with 1% lidocaine. Under direct sonographic visualization, an 18 gauge biop sy needle was advanced. Initial biopsy placed the tip at the inferior margin. A 2 centimeter core was obtained. There were three additional core biopsies obtained using the 18 gauge needle. On each of t hese biopsies, the needle tip was advanced into the mass prior to obtaining a 2 cm core biopsy. At the conclusion of the procedure, direct pressure was applied. Hemostasis was obtained and a steril e bandage placed to the puncture site. Post-procedure care and precaution instructions were given to the patient. All obtained core biopsies were given to pathology for histologic assessment. IMPRESSION: Ultrasound-guided core biopsy of right breast mass as detailed.
== END ==
LOC: DS 09:49
PROVIDERS: ATTEND Surgery
PROC: 0HBT3ZX Excision of Right Breast, Percutaneous Approach, Diagnostic (ICD-10-PCS; principal; 2017-12-30)
DX: C50.911 Malignant neoplasm of unspecified site of right female breast (principal); Z17.0 Estrogen receptor positive status [ER+]
CPT/HCPCS: 19083; 76642; 88305

== ENCOUNTER 2021-12-25 10:14 | Inpatient (IN) | payer OTHER, SELFPAY ==
--- OUTSIDE RECORDS SUMMARY | 2021-12-25 10:19 | XMS REPORT | Continuity of Care Document ---
:1950 Author Organization [facility] t Address [address] [place] [address] Care Team Providers Name Role Phone Manuel Linares MD Attending Clinician MARYCHUY Attending Clinician Unavailable Tyrell WILBURN, Miguel Angel Attending Clinician Renetta Tovar MD Attending Clinician PIPER FITZGERALD Attending Clinician Unavailable Tara SANTILLAN Attending Clinician Unavailable Giorgio KNOX Attending Clinician Lia WILBURN, PhD, J. 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, of breast, 00 Me dicin female, female, e right right (HCCode) (HCCode) Metastatic Metastatic Disease Active [facility] breast breast 01-07 [facility] cancer cancer 00:00: of (HCCode) (HCCode) 00 Medici n e Allergies, Adverse Reactions, Alerts Allergy Allergy Status Severity Reaction(s) Onset Inactive Treating Comm ents Source Name Type Date Date Clinician NO KNOWN Allergy Active [facility] Social History Social Habit Start Date Stop Date Quantity Comments Source Exposure to Not sure [facility] SARS-CoV-2 of Medicine (event) Alcohol intake 2021-01-06 2021-01-06 Current [facility] 00:00:00 00:00:00 non-drinker of of Medicin e alcohol (finding) Tobacco use and 2018-01-07 2018-01-07 Never used [facility] exposure 00:00:00 00:00:00 of Medicine Sex [birth year] F [facility] 00:00:00 00:00:00 of Medicine Smoking Status Start Date Stop Date Source Never smoker [facility] o f Medicine Medications Ordered Filled Start Stop Current Ordering Indication Dosage Frequency Signature Comments Components Source Medication Medication Date Date Medication? Clinician (SIG) Name Name amlodipine Yes [id number] 10mg Take 10 mg [facility] (NORVASC) 6-14 by mouth Colleg e 10 MG 10:49: daily. of tablet 30 Medicin e Multiple Yes [id number] Take by [facility] 6-14 mouth. Colleg e nerals 10:49: of (MULTIVITAM 30 Medicin IN ADULT e OR) Letrozole Yes [id number] 2.5mg Take 2.5 [facility] 2.5 MG TABS 6-14 [id number] mg by Colleg e 00:00: mouth of 00 daily. Medicin e tramadol Yes [id number] 1{tbl} Take 1 [facility] (ULTRAM) 50 6-14 Tablet by Col lege MG tablet 00:00: mouth of 00 every 6 Medicin hours as e needed for Pain. Letrozole 2020- No [id number] 2.5mg Take 2.5 [facility] 2.5 MG TABS 4-14 06-14 [id number] mg by Colle ge 00:00: 00:00 mouth of 00 :00 daily. Medicin e amlodipine 2019-07 Yes [id number] 10mg Take 10 mg [facility] (NORVASC) 2-14 by mouth Colleg e 10 MG 16:52: daily. of tablet 02 Medicin e Multiple 2019-07 Yes [id number] Take by [facility] 2-14 mouth. Colleg e nerals 16:52: of (MULTIVITAM 02 Medicin IN ADULT e OR) amlodipine 2020-0 Yes [id number] 10mg Take 10 mg [facility] (NORVASC) 8-17 by mouth Colleg e 10 MG 14:26: daily. of tablet 17 Medicin e Multiple 2019-0 Yes [id number] Take by [facility] 8-17 mouth. Colleg e nerals 14:26: of (MULTIVITAM 17 Medicin IN ADULT e OR) amlodipine 2019-0 Yes [id number] 10mg Take 10 mg [facility] (NORVASC) 7-14 by mouth Colleg e 10 MG 14:19: daily. of tablet 33 Medicin e Multiple 2019-0 Yes [id number] Take by [facility] 7-14 mouth. Colleg e nerals 14:19: of (MULTIVITAM 33 Medicin IN ADULT e OR) amlodipine 0 Yes [id number] 10mg Take 10 mg [facility] (NORVASC) 6-30 by mouth Colleg e 10 MG 14:03: daily. of tablet 10 Medicin e Multiple 0 Yes [id number] Take by [facility] 6-30 mouth. Colleg e nerals 14:03: of (MULTIVITAM 10 Medicin IN ADULT e OR) amlodipine 0 Yes [id number] 10mg Take 10 mg [facility] (NORVASC) 6-23 by mouth Colleg e 10 MG 14:03: daily. of tablet 50 Medicin e Multiple 2019-0 Yes [id number] Take by [facility] 6-23 mouth. Colleg e nerals 14:03: of (MULTIVITAM 50 Medicin IN ADULT e OR) amlodipine 2019-0 Yes [id number] 10mg Take 10 mg [facility] (NORVASC) 6-15 by mouth Colleg e 10 MG 15:47: daily. of tablet 59 Medicin e Multiple 2019-0 Yes [id number] Take by [facility] 6-15 mouth. Colleg e nerals 15:47: of (MULTIVITAM 59 Medicin IN ADULT e OR) amlodipine 2019-0 Yes [id number] 10mg Take 10 mg [facility] (NORVASC) 6-15 by mouth Colleg e 10 MG 15:47: daily. of tablet 59 Medicin e Multiple 2019-0 Yes [id number] Take by [facility] 6-15 mouth. Colleg e nerals 15:47: of (MULTIVITAM 59 Medicin IN ADULT e OR) amlodipine 0 Yes [id number] 10mg Take 10 mg [facility] (NORVASC) 6-09 by mouth Colleg e 10 MG 14:36: daily. of tablet 20 Medicin e Multiple 0 Yes [id number] Take by [facility] 6-09 mouth. Colleg e nerals 14:36: of (MULTIVITAM 20 Medicin IN ADULT e OR) amlodipine 0 Yes [id number] 10mg Take 10 mg [facility] (NORVASC) 6-02 by mouth Colleg e 10 MG 14:27: daily. of tablet 46 Medicin e Multiple 0 Yes [id number] Take by [facility] 6-02 mouth. Colleg e nerals 14:27: of (MULTIVITAM 46 Medicin IN ADULT e OR) amlodipine Yes [id number] 10mg Take 10 mg [facility] (NORVASC) 5-26 by mouth Colleg e 10 MG 14:34: daily. of tablet 48 Medicin e Multiple Yes [id number] Take by [facility] 5-26 mouth. Colleg e nerals 14:34: of (MULTIVITAM 48 Medicin IN ADULT e OR) amlodipine Yes [id number] 10mg Take 10 mg [facility] (NORVASC) 5-15 by mouth Colleg e 10 MG 19:16: daily. of tablet 15 Medicin e Multiple Yes [id number] Take by [facility] 5-15 mouth. Colleg e nerals 19:16: of (MULTIVITAM 15 Medicin IN ADULT e OR) amlodipine Yes [id number] 10mg Take 10 mg [facility] (NORVASC) 5-15 by mouth Colleg e 10 MG 19:16: daily. of tablet 15 Medicin e Multiple 0 Yes [id number] Take by [facility] 5-15 mouth. Colleg e nerals 19:16: of (MULTIVITAM 15 Medicin IN ADULT e OR) amoxicillin 0 2020- No 1{tbl} Take 1 Tab [facility] -clavulanat 5-09 05-20 by mouth Col lege e 00:00: 04:59 two times of (AUGMENTIN) 00 :00 daily for Med icin 875-125 MG 10 days. e per tablet amoxicillin 2020-0 2020- No 1{tbl} Take 1 Tab [facility] -clavulanat 5-09 05-20 by mouth Col lege e 00:00: 04:59 two times of (AUGMENTIN) 00 :00 daily for Med icin 875-125 MG 10 days. e per tablet Letrozole 2020-0 Yes [id number] 2.5mg Take 2.5 [facility] 2.5 MG TABS 4-17 [id number] mg by Colleg e 00:00: mouth of 00 daily. Medicin e Letrozole 2020-0 Yes [id number] 2.5mg Take 2.5 [facility] 2.5 MG TABS 4-17 [id number] mg by Colleg e 00:00: mouth of 00 daily. Medicin e Letrozole 2020-0 Yes [id number] 2.5mg Take 2.5 [facility] 2.5 MG TABS 4-17 [id number] mg by Colleg e 00:00: mouth of 00 daily. Medicin e Letrozole 2020-0 Yes [id number] 2.5mg Take 2.5 [facility] 2.5 MG TABS 4-17 [id number] mg by Colleg e 00:00: mouth of 00 daily. Medicin e Letrozole 2020-0 Yes [id number] 2.5mg Take 2.5 [facility] 2.5 MG TABS 4-17 [id number] mg by Colleg e 00:00: mouth of 00 daily. Medicin e Letrozole 2020-0 Yes [id number] 2.5mg Take 2.5 [facility] 2.5 MG TABS 4-17 [id number] mg by Colleg e 00:00: mouth of 00 daily. Medicin e Letrozole 2020-0 Yes [id number] 2.5mg Take 2.5 [facility] 2.5 MG TABS 4-17 [id number] mg by Colleg e 00:00: mouth of 00 daily. Medicin e Letrozole 2020-0 Yes [id number] 2.5mg Take 2.5 [facility] 2.5 MG TABS 4-17 [id number] mg by Colleg e 00:00: mouth of 00 daily. Medicin e Letrozole 2020-0 Yes [id number] 2.5mg Take 2.5 [facility] 2.5 MG TABS 4-17 [id number] mg by Colleg e 00:00: mouth of 00 daily. Medicin e Letrozole 2020-0 Yes [id number] 2.5mg Take 2.5 [facility] 2.5 MG TABS 4-17 [id number] mg by Colleg e 00:00: mouth of 00 daily. Medicin e Letrozole 2020-0 Yes [id number] 2.5mg Take 2.5 [facility] 2.5 MG TABS 4-17 [id number] mg by Colleg e 00:00: mouth of 00 daily. Medicin e Letrozole 2020-0 Yes [id number] 2.5mg Take 2.5 [facility] 2.5 MG TABS 4-17 [id number] mg by Colleg e 00:00: mouth of 00 daily. Medicin e amlodipine 2020-0 Yes [id number] 10mg Take 10 mg [facility] (NORVASC) 2-25 by mouth Colleg e 10 MG 14:56: daily. of tablet 53 Medicin e Multiple 2020-0 Yes [id number] Take by [facility] 2-25 mouth. Colleg e nerals 14:56: of (MULTIVITAM 53 Medicin IN ADULT e OR) amlodipine 2019-0 Yes [id number] 10mg Take 10 mg [facility] (NORVASC) 2-18 by mouth Colleg e 10 MG 17:01: daily. of tablet 23 Medicin e Multiple 2020-0 Yes [id number] Take by [facility] 2-18 mouth. Colleg e nerals 17:01: of (MULTIVITAM 23 Medicin IN ADULT e OR) Vitamin D, 2018-07 Yes 1.25mg Take 1.25 [facility] 2-17 mg by [facility], 1.25 00:00: mouth of MG (50824 00 every 7 Medicin UT) CAPS days. e Vitamin D, 2018-07 Yes 1.25mg Take 1.25 [facility] Ergocalcife 2-17 mg by [facility], 1.25 00:00: mouth of MG (88481 00 every 7 Medicin UT) CAPS days. e Vitamin D, 2018-07 Yes 1.25mg Take 1.25 [facility] Ergocalcife 2-17 mg by [facility], 1.25 00:00: mouth of MG (41732 00 every 7 Medicin UT) CAPS days. e Vitamin D, 2018-07 Yes 1.25mg Take 1.25 [facility] Ergocalcife 2-17 mg by [facility], 1.25 00:00: mouth of MG (65026 00 every 7 Medicin UT) CAPS days. e Vitamin D, 2018-07 Yes 1.25mg Take 1.25 [facility] Ergocalcife 2-17 mg by [facility], 1.25 00:00: mouth of MG (88238 00 every 7 Medicin UT) CAPS days. e Vitamin D, 2018-07 Yes 1.25mg Take 1.25 [facility] Ergocalcife 2-17 mg by [facility], 1.25 00:00: mouth of MG (30570 every 7 Medicin UT) CAPS days. e Vitamin D, 2018-07 Yes 1.25mg Take 1.25 [facility] Ergocalcife 2-17 mg by [facility], 1.25 00:00: mouth of MG (73963 every 7 Medicin UT) CAPS days. e Vitamin D, 2018-07 Yes 1.25mg Take 1.25 [facility] Ergocalcife 2-17 mg by [facility], 1.25 00:00: mouth of MG ( every 7 Medicin UT) CAPS days. e Vitamin D, 2018-07 Yes 1.25mg Take 1.25 [facility] Ergocalcife 2-17 mg by [facility], 1.25 00:00: mouth of MG (41826 every 7 Medicin [place]) CAPS days. e Vitamin D, 2018-07 2020- No 1.25mg Take 1.25 [facility] Ergocalcife 2-17 06-23 mg by [facility], 1.25 00:00: 00:00 mouth of MG ( 00 :00 every 7 Medicin UT) CAPS days. e amlodipine Yes [id number] 10mg Take 10 mg [facility] (NORVASC) 9-03 by mouth Colleg e 10 MG 16:25: daily. of tablet 23 Medicin e Multiple Yes [id number] Take by [facility] 9-03 mouth. Colleg e nerals 16:25: of (MULTIVITAM 23 Medicin IN ADULT e OR) tramadol Yes 50mg Take 1 Tab [facility] (ULTRAM) 50 8-07 by mouth [facility] MG tablet 00:00: every 6 of 00 hours as Medicin needed for e Pain. tramadol Yes 50mg Take 1 Tab [facility] (ULTRAM) 50 8-07 by mouth [facility] MG tablet 00:00: every 6 of 00 hours as Medicin needed for e Pain. tramadol 2019-0 Yes 50mg Take 1 Tab [facility] (ULTRAM) 50 8-07 by mouth [facility] MG tablet 00:00: every 6 of 00 hours as Medicin needed for e Pain. tramadol 2019-0 Yes 50mg Take 1 Tab [facility] (ULTRAM) 50 8-07 by mouth [facility] MG tablet 00:00: every 6 of 00 hours as Medicin needed for e Pain. tramadol 2019-0 Yes 50mg Take 1 Tab [facility] (ULTRAM) 50 8-07 by mouth [facility] MG tablet 00:00: every 6 of 00 hours as Medicin needed for e Pain. tramadol 2019-0 Yes 50mg Take 1 Tab [facility] (ULTRAM) 50 8-07 by mouth [facility] MG tablet 00:00: every 6 of 00 hours as Medicin needed for e Pain. tramadol 2019-0 Yes 50mg Take 1 Tab [facility] (ULTRAM) 50 8-07 by mouth [facility] MG tablet 00:00: every 6 of 00 hours as Medicin needed for e Pain. tramadol 2019-0 2020- No 50mg Take 1 Tab [facility] (ULTRAM) 50 8-07 06-09 by mouth Col lege MG tablet 00:00: 00:00 every 6 of 00 :00 hours as Medicin needed for e Pain. Letrozole 2019-0 Yes [id number] 2.5mg Take 2.5 [facility] 2.5 MG TABS 3-26 [id number] mg by Colleg e 00:00: mouth of 00 daily. Medicin e Letrozole 2019-0 Yes [id number] 2.5mg Take 2.5 [facility] 2.5 MG TABS 3-26 [id number] mg by Colleg e 00:00: mouth of 00 daily. Medicin e Letrozole 2019-0 Yes [id number] 2.5mg Take 2.5 [facility] 2.5 MG TABS 3-26 [id number] mg by Colleg e 00:00: mouth of 00 daily. Medicin e Vital Signs Vital Name Observation Time Observation Value Comments Source Systolic blood 2021-01-06 15:48:00 146 mm[Hg] [facility] Diastolic blood 2021-01-06 15:48:00 80 mm[Hg] [facility] pressure Medicine Heart rate 2021-01-06 15:48:00 85 /min [facility] ollege of Medicine Body temperature 2021-01-06 15:48:00 36.11 [facility] Body height 2021-01-06 15:48:00 149.9 cm [facility] ollege of Medicine Body weight 2021-01-06 15:48:00 69.854 kg [facility] ollege of [facility] BMI 2021-01-06 15:48:00 31.10 kg/m2 [facility] ol[facility] of Medicine Systolic blood 2020-07-08 16:51:00 160 mm[Hg] [facility] of pressure Medicine Diastolic blood 2020-07-08 16:51:00 81 mm[Hg] [facility] pressure Medicine Heart rate 2020-07-08 16:51:00 93 /min [facility] ollege of [facility] Body temperature 2020-07-08 16:51:00 36.61 [facility] Body height 2020-07-08 16:51:00 149.9 cm [facility] ollege of Medicine Body weight 2020-07-08 16:51:00 [facility] BMI 2020-07-08 16:51:00 33.53 [facility]2 [facility] Systolic blood 2020-03-11 14:25:00 158 mm[Hg] [facility] of pressure Medicine Diastolic blood 2020-03-11 14:25:00 78 mm[Hg] [facility] pressure Medicine Heart rate 2020-03-11 14:25:00 87 /min [facility] ol[facility] of Medicine Body temperature 2020-03-11 14:25:00 36.72 [facility] Body height 2020-03-11 14:25:00 149.9 cm [facility] ollege of Medicine Systolic blood 2020-02-06 14:18:00 151 mm[Hg] [facility] of pressure Medicine Diastolic blood 2020-02-06 14:18:00 76 mm[Hg] [facility] of pressure Medicine Heart rate 2020-02-06 14:18:00 96 /min [facility] ol[facility] of Medicine Body temperature 2020-02-06 14:18:00 36.72 [facility] Respiratory rate 2020-02-06 14:18:00 18 /min [facility] Systolic blood 2020-01-23 14:01:00 145 mm[Hg] [facility] pressure Medicine Diastolic blood 2020-01-23 14:01:00 84 mm[Hg] [facility] pressure Medicine Heart rate 2020-01-23 14:01:00 97 /min [facility] ollege of Medicine Body temperature 2020-01-23 14:01:00 36.72 [facility] Respiratory rate 2020-01-23 14:01:00 18 /min [facility] Body weight 2020-01-23 14:01:00 78.382 kg [facility] ol[facility] of Medicine BMI 2020-01-23 14:01:00 34.90 kg/m2 [facility] ol[facility] of Medicine Systolic blood 2020-01-16 14:01:00 148 mm[Hg] [facility] pressure Medicine Diastolic blood 2020-01-16 14:01:00 83 mm[Hg] [facility] Medicine Heart rate 2020-01-16 14:01:00 91 /min [facility] ol[facility] of Medicine Body temperature 2020-01-16 14:01:00 36.61 [facility] Body height 2020-01-16 14:01:00 149.9 cm [facility] of Medicine Body weight 2020-01-16 14:01:00 78.382 kg [facility] of Medicine BMI 2020-01-16 14:01:00 34.90 kg/m2 [facility] of Medicine Systolic blood 2020-01-08 15:48:00 124 mm[Hg] [facility] Medicine Diastolic blood 2020-01-08 15:48:00 78 mm[Hg] [facility] Medicine Heart rate 2020-01-08 15:48:00 105 /min [facility] ollege of Medicine Body temperature 2020-01-08 15:48:00 36.56 [facility] Body height 2020-01-08 15:47:00 149.9 cm [facility] ollege of Medicine Body weight 2020-01-08 15:47:00 78.019 kg [facility] ol[facility] of Medicine BMI 2020-01-08 15:47:00 34.74 kg/m2 [facility] ol[facility] of Medicine Systolic blood 2020-01-02 14:35:00 142 mm[Hg] [facility] of pressure Medicine Diastolic blood 2020-01-02 14:35:00 90 mm[Hg] [facility] pressure Medicine Heart rate 2020-01-02 14:35:00 91 /min [facility] ol[facility] of Medicine Body temperature 2020-01-02 14:35:00 36.33 [facility] Respiratory rate 2020-01-02 14:35:00 18 /min [facility] Body height 2020-01-02 14:35:00 149.9 cm [facility] ollege of [facility] Body weight 2020-01-02 14:35:00 78.472 kg [facility] ollege of [facility] BMI 2020-01-02 14:35:00 34.94 kg/m2 [facility] ol[facility] of Medicine Systolic blood 2019-12-26 14:25:00 160 mm[Hg] [facility] pressure Medicine Diastolic blood 2019-12-26 14:25:00 83 mm[Hg] [facility] Medicine Heart rate 2019-12-26 14:25:00 90 /min [facility] ollege of [facility] Body temperature 2019-12-26 14:25:00 36.56 [facility] Body height 2019-12-26 14:25:00 149.9 cm [facility] ollege of [facility] Body weight 2019-12-26 14:25:00 79.561 kg [facility] ollege of [facility] BMI 2019-12-26 14:25:00 35.43 kg/m2 [facility] ol[facility] of Medicine Systolic blood 2019-12-19 14:33:00 143 mm[Hg] [facility] Medicine Diastolic blood 2019-12-19 14:33:00 73 mm[Hg] [facility] pressure Medicine Heart rate 2019-12-19 14:33:00 96 /min [facility] ol[facility] of Medicine Body temperature 2019-12-19 14:33:00 36.89 [facility] Respiratory rate 2019-12-19 14:33:00 16 /min [facility] Body height 2019-12-19 14:33:00 149.9 cm [facility] C ollege of Medicine Body weight 2019-12-19 14:33:00 79.561 kg [facility] ollege of Medicine BMI 2019-12-19 14:33:00 35.43 kg/m2 [facility] C ollege of Medicine Systolic blood 2019-12-08 19:14:00 145 mm[Hg] [facility] of pressure Medicine Diastolic blood 2019-12-08 19:14:00 79 mm[Hg] [facility] of pressure Medicine Heart rate 2019-12-08 19:14:00 103 /min [facility] C ollege of Medicine Body temperature 2019-12-08 19:14:00 36.89 [facility] Body height 2019-12-08 19:14:00 149.9 cm [facility] C ollege of Medicine Systolic blood 2019-12-05 14:58:00 152 mm[Hg] [facility] of pressure Medicine Diastolic blood 2019-12-05 14:58:00 75 mm[Hg] [facility] of pressure Medicine Heart rate 2019-12-05 14:58:00 104 /min [facility] C ollege of Medicine Body temperature 2019-12-05 14:58:00 36.72 [facility] Body height 2019-12-05 14:58:00 149.9 cm [facility] ollege of Medicine Body weight 2019-12-05 14:58:00 80.287 kg [facility]lege of Medicine BMI 2019-12-05 14:58:00 35.75 kg/m2 [facility] C ollege of Medicine Systolic blood 2019-09-19 14:55:00 164 mm[Hg] [facility] of pressure Medicine Diastolic blood 2019-09-19 14:55:00 98 mm[Hg] [facility] pressure Medicine Heart rate 2019-09-19 14:55:00 95 /min [facility] ollege of Medicine Body temperature 2019-09-19 14:55:00 36.67 [facility] Body height 2019-09-19 14:55:00 151.1 cm [facility] ollege of Medicine Body weight 2019-09-19 14:55:00 78.064 kg [facility]lege of Medicine BMI 2019-09-19 14:55:00 34.18 kg/m2 [facility] Systolic blood 2019-09-12 17:00:00 153 mm[Hg] [facility] pressure Medicine Diastolic blood 2019-09-12 17:00:00 87 mm[Hg] [facility] Medicine Heart rate 2019-09-12 17:00:00 103 /min [facility] Body temperature 2019-09-12 17:00:00 36.67 [facility] Body height 2019-09-12 17:00:00 151.1 cm [facility] Body weight 2019-09-12 17:00:00 78.563 kg [facility] BMI 2019-09-12 17:00:00 34.40 kg/m2 [facility] Systolic blood 2019-03-28 16:22:00 143 mm[Hg] [facility] Medicine Diastolic blood 2019-03-28 16:22:00 79 mm[Hg] [facility] Medicine Heart rate 2019-03-28 16:22:00 100 /min [facility] Body temperature 2019-03-28 16:22:00 36.83 [facility] Respiratory rate 2019-03-28 16:22:00 16 /min [facility] Body height 2019-03-28 16:22:00 151.1 cm [facility] Body weight 2019-03-28 16:22:00 80.287 kg [facility] BMI 2019-03-28 16:22:00 35.15 kg/m2 [facility] Procedures This patient has no known procedures. Plan of Care Planned Activity Planned Date Details Comments Source Future Scheduled 2021-01-06 Screening for [facility] Test 14:24:14 malignant neoplasm of Medici ne of breast (procedure) [code = 084132534] Future Scheduled 2021-01-06 Screening for [facility] Test 12:36:46 malignant neoplasm of Medici ne of colon (procedure) [code = 729699282] Future Scheduled 2021-01-06 COVID-19 Vaccine (1) [facility] Test 12:36:46 [code = COVID-19 of Medicine Vaccine (1)] Future Scheduled 2021-01-06 TETANUS SHOT (ADULT) [facility] 12:36:46 [code = TETANUS SHOT of Medi cine (ADULT)] Future Scheduled 2021-01-06 BMI FOLLOW UP PLAN [employer] Test 12:36:46 [code = BMI FOLLOW of Medici ne UP PLAN] Future Scheduled 2021-01-06 Hepatitis C [facility] Test 12:36:46 screening of Medicine (procedure) [code = 897613553] Future Scheduled 2021-01-06 ZOSTER VACCINE (1 of [facility] Test 12:36:46 2) [code = ZOSTER of Medicin e VACCINE (1 of 2)] Future Scheduled 2021-01-06 MEDICARE AWV [facility] 12:36:46 (Initial) [code = of Medicin e MEDICARE AWV (Initial)] Future Scheduled 2021-01-06 FALL SCREEN [code = [employer] Test 12:36:46 FALL SCREEN] of Medicine Future Scheduled 2021-01-06 PNEUMOVAX >=65 [facility] Test 12:36:46 (PPSV23) [code = of Medicine PNEUMOVAX >=65 (PPSV23)] Future Scheduled 2021-01-06 FLU VACCINE > 6 [facility] C [facility]lege Test 12:36:46 MONTHS [code = FLU of Medici ne VACCINE > 6 MONTHS] Diagnostic Test 2021-01-06 MAMMO DIAGNOSTIC Expected: [facility] [employer] Pending 00:00:00 BILAT (US/BIOP IF 01/06/2021, of Medicin e NEEDED) [code = Expires: 93968-5] 07/08/2022 Diagnostic Test 2020-04-11 CT CHEST WO CONTRAST Expected: [employer] Pending 00:00:00 [code = 57909-8] 04/11/2020 of Medicine (Approximate), Expires: 10/09/2020 Future Scheduled CULTURE, ANAEROBIC Ordered: [employer] Test [code = 635-3] 12/05/2019 of Medicine Future Scheduled CULTURE, AEROBIC Ordered: [facility] Test [code = 634-6] 12/05/2019 of Medicine Future Scheduled COLON CANCER [facility] [employer] Test SCREENING: of Medicine COLONOSCOPY [code = COLON CANCER SCREENING: COLONOSCOPY] Future Scheduled MAMMOGRAM ANNUAL [facility] Test [code = MAMMOGRAM of Medicin e ANNUAL] Future Scheduled TETANUS SHOT (ADULT) [employer] Test [code = TETANUS SHOT of Medi cine (ADULT)] Future Scheduled BMI FOLLOW UP PLAN [employer] Test [code = BMI FOLLOW of Medici ne UP PLAN] Future Scheduled HEPATITIS C [employer] [facility] SCREENING [code = of Medicin e HEPATITIS C SCREENING] Future Scheduled MEDICARE AWV [facility] [employer] Test (Initial) [code = of Medicin e MEDICARE AWV (Initial)] Future Scheduled FALL SCREEN [code = [employer] [facility] FALL SCREEN] of Medicine Future Scheduled PNEUMOVAX >=65 [facility] [employer] Test (PPSV23) [code = of Medicine PNEUMOVAX >=65 (PPSV23)] Future Scheduled PREVNAR >= 65 [facility] [employer] [facility] Test (PCV13) [code = of Medicine PREVNAR >= 65 (PCV13)] Future Scheduled FLU VACCINE > 6 [employer] Test MONTHS [code = FLU of Medici ne VACCINE > 6 MONTHS] Future Scheduled COLON CANCER [facility] [employer] Test SCREENING: of Medicine COLONOSCOPY [code = COLON CANCER SCREENING: COLONOSCOPY] Future Scheduled MAMMOGRAM ANNUAL [facility] Test [code = MAMMOGRAM of Medicin e ANNUAL] Future Scheduled TETANUS SHOT (ADULT) [employer] Test [code = TETANUS SHOT of Medi cine (ADULT)] Future Scheduled BMI FOLLOW UP PLAN [employer] Test [code = BMI FOLLOW of Medici ne UP PLAN] Future Scheduled HEPATITIS C [facility] [employer] Test SCREENING [code = of Medicin e HEPATITIS C SCREENING] Future Scheduled MEDICARE AWV [facility] [employer] Test (Initial) [code = of Medicin e MEDICARE AWV (Initial)] Future Scheduled FALL SCREEN [code = [employer] [facility] FALL SCREEN] of Medicine Future Scheduled PNEUMOVAX >=65 [facility] [employer] Test (PPSV23) [code = of Medicine PNEUMOVAX >=65 (PPSV23)] Future Scheduled PREVNAR >= 65 [facility] [employer] [facility] Test (PCV13) [code = of Medicine PREVNAR >= 65 (PCV13)] Future Scheduled FLU VACCINE > 6 [facility] [employer] Test MONTHS [code = FLU of Medici ne VACCINE > 6 MONTHS] Future Scheduled COLON CANCER [facility] [employer] Test SCREENING: of Medicine COLONOSCOPY [code = COLON CANCER SCREENING: COLONOSCOPY] Future Scheduled MAMMOGRAM ANNUAL [employer] Test [code = MAMMOGRAM of Medicin e ANNUAL] Future Scheduled TETANUS SHOT (ADULT) [employer] Test [code = TETANUS SHOT of Medi cine (ADULT)] Future Scheduled BMI FOLLOW UP PLAN [employer] Test [code = BMI FOLLOW of Medici ne UP PLAN] Future Scheduled HEPATITIS C [facility] [employer] Test SCREENING [code = of Medicin e HEPATITIS C SCREENING] Future Scheduled MEDICARE AWV [facility] [employer] Test (Initial) [code = of Medicin e MEDICARE AWV (Initial)] Future Scheduled FALL SCREEN [code = [employer] [facility] FALL SCREEN] of Medicine Future Scheduled PNEUMOVAX >=65 [facility] [employer] Test (PPSV23) [code = of Medicine PNEUMOVAX >=65 (PPSV23)] Future Scheduled PREVNAR >= 65 [employer] Test (PCV13) [code = of Medicine PREVNAR >= 65 (PCV13)] Future Scheduled FLU VACCINE > 6 [employer] Test MONTHS [code = FLU of Medici ne VACCINE > 6 MONTHS] Future Scheduled COLON CANCER [facility] [employer] Test SCREENING: of Medicine COLONOSCOPY [code = COLON CANCER SCREENING: COLONOSCOPY] Future Scheduled MAMMOGRAM ANNUAL [facility] Test [code = MAMMOGRAM of Medicin e ANNUAL] Future Scheduled TETANUS SHOT (ADULT) [employer] Test [code = TETANUS SHOT of Medi cine (ADULT)] Future Scheduled BMI FOLLOW UP PLAN [employer] Test [code = BMI FOLLOW of Medici ne UP PLAN] Future Scheduled HEPATITIS C [facility] [employer] Test SCREENING [code = of Medicin e HEPATITIS C SCREENING] Future Scheduled MEDICARE AWV [employer] Test (Initial) [code = of Medicin e MEDICARE AWV (Initial)] Future Scheduled FALL SCREEN [code = [employer] [facility] FALL SCREEN] of Medicine Future Scheduled PNEUMOVAX >=65 [employer] Test (PPSV23) [code = of Medicine PNEUMOVAX >=65 (PPSV23)] Future Scheduled PREVNAR >= 65 [employer] Test (PCV13) [code = of Medicine PREVNAR >= 65 (PCV13)] Future Scheduled FLU VACCINE > 6 [facility] [employer] Test MONTHS [code = FLU of Medici ne VACCINE > 6 MONTHS] Future Scheduled CBC W/AUTO DIFF WITH Ordered: [employer] Test PLATELETS [code = 03/28/2019 of Medicin e 96338-8] Future Scheduled COLON CANCER [facility] [employer] Test SCREENING: of Medicine COLONOSCOPY [code = COLON CANCER SCREENING: COLONOSCOPY] Future Scheduled MAMMOGRAM ANNUAL [facility] Test [code = MAMMOGRAM of Medicin e ANNUAL] Future Scheduled TETANUS SHOT (ADULT) [employer] Test [code = TETANUS SHOT of Medi cine (ADULT)] Future Scheduled BMI FOLLOW UP PLAN [employer] Test [code = BMI FOLLOW of Medici ne UP PLAN] Future Scheduled HEPATITIS C [facility] [employer] Test SCREENING [code = of Medicin e HEPATITIS C SCREENING] Future Scheduled MEDICARE AWV [facility] [employer] Test (Initial) [code = of Medicin e MEDICARE AWV (Initial)] Future Scheduled FALL SCREEN [code = [employer] [facility] FALL SCREEN] of Medicine Future Scheduled PNEUMOVAX >=65 [employer] Test (PPSV23) [code = of Medicine PNEUMOVAX >=65 (PPSV23)] Future Scheduled PREVNAR >= 65 [facility] [employer] [facility] Test (PCV13) [code = of Medicine PREVNAR >= 65 (PCV13)] Future Scheduled FLU VACCINE > 6 [facility] [employer] Test MONTHS [code = FLU of Medici ne VACCINE > 6 MONTHS] Future Scheduled COMPREHENSIVE Ordered: [facility] [employer] Test METABOLIC PANEL 03/28/2019 of Medicine [code = 08792-7] Future Scheduled CANCER ANTIGEN 27.29 Ordered: [employer] Test [code = 68023-9] 03/28/2019 of Medicine Future Scheduled COLON CANCER [facility] [employer] Test SCREENING: of Medicine COLONOSCOPY [code = COLON CANCER SCREENING: COLONOSCOPY] Future Scheduled MAMMOGRAM ANNUAL [facility] Test [code = MAMMOGRAM of Medicin e ANNUAL] Future Scheduled TETANUS SHOT (ADULT) [employer] Test [code = TETANUS SHOT of Medi cine (ADULT)] Future Scheduled BMI FOLLOW UP PLAN [employer] Test [code = BMI FOLLOW of Medici ne UP PLAN] Future Scheduled HEPATITIS C [facility] [employer] Test SCREENING [code = of Medicin e HEPATITIS C SCREENING] Future Scheduled MEDICARE AWV [employer] Test (Initial) [code = of Medicin e MEDICARE AWV (Initial)] Future Scheduled FALL SCREEN [code = [employer] [facility] FALL SCREEN] of Medicine Future Scheduled PNEUMOVAX >=65 [employer] Test (PPSV23) [code = of Medicine PNEUMOVAX >=65 (PPSV23)] Future Scheduled PREVNAR >= 65 [facility] [employer] Test (PCV13) [code = of Medicine PREVNAR >= 65 (PCV13)] Future Scheduled FLU VACCINE > 6 [employer] Test MONTHS [code = FLU of Medici ne VACCINE > 6 MONTHS] Future Scheduled COLON CANCER [facility] [employer] Test SCREENING: of Medicine COLONOSCOPY [code = COLON CANCER SCREENING: COLONOSCOPY] Future Scheduled COLON CANCER [facility] [employer] Test SCREENING: of Medicine COLONOSCOPY [code = COLON CANCER SCREENING: COLONOSCOPY] Future Scheduled MAMMOGRAM ANNUAL [facility] Test [code = MAMMOGRAM of Medicin e ANNUAL] Future Scheduled TETANUS SHOT (ADULT) [employer] Test [code = TETANUS SHOT of Medi cine (ADULT)] Future Scheduled BMI FOLLOW UP PLAN [employer] Test [code = BMI FOLLOW of Medici ne UP PLAN] Future Scheduled HEPATITIS C [facility] [employer] Test SCREENING [code = of Medicin e HEPATITIS C SCREENING] Future Scheduled MEDICARE AWV [facility] [employer] Test (Initial) [code = of Medicin e MEDICARE AWV (Initial)] Future Scheduled FALL SCREEN [code = [employer] [facility] FALL SCREEN] of Medicine Future Scheduled PNEUMOVAX >=65 [facility] [employer] Test (PPSV23) [code = of Medicine PNEUMOVAX >=65 (PPSV23)] Future Scheduled PREVNAR >= 65 [facility] [employer] Test (PCV13) [code = of Medicine PREVNAR >= 65 (PCV13)] Future Scheduled MAMMOGRAM ANNUAL [facility] Test [code = MAMMOGRAM of Medicin e ANNUAL] Future Scheduled FLU VACCINE > 6 [employer] Test MONTHS [code = FLU of Medici ne VACCINE > 6 MONTHS] Future Scheduled MEDICARE AWV [code = [employer] [facility] MEDICARE AWV] of Medicine Future Scheduled COLON CANCER [facility] [employer] Test SCREENING: of Medicine COLONOSCOPY [code = COLON CANCER SCREENING: COLONOSCOPY] Future Scheduled MAMMOGRAM ANNUAL [facility] [employer] Test [code = MAMMOGRAM of Medicin e ANNUAL] Future Scheduled TETANUS SHOT (ADULT) [employer] Test [code = TETANUS SHOT of Medi cine (ADULT)] Future Scheduled BMI FOLLOW UP PLAN [employer] Test [code = BMI FOLLOW of Medici ne UP PLAN] Future Scheduled HEPATITIS C [facility] [employer] Test SCREENING [code = of Medicin e HEPATITIS C SCREENING] Future Scheduled TETANUS SHOT (ADULT) [employer] Test [code = TETANUS SHOT of Medi cine (ADULT)] Future Scheduled MEDICARE AWV [facility] [employer] Test (Initial) [code = of Medicin e MEDICARE AWV (Initial)] Future Scheduled FALL SCREEN [code = [employer] FALL SCREEN] of Medicine Future Scheduled PNEUMOVAX >=65 [facility] [employer] Test (PPSV23) [code = of Medicine PNEUMOVAX >=65 (PPSV23)] Future Scheduled FLU VACCINE > 6 [facility] [employer] Test MONTHS [code = FLU of Medici ne VACCINE > 6 MONTHS] Future Scheduled BMI FOLLOW UP PLAN [employer] Test [code = BMI FOLLOW of Medici ne UP PLAN] Future Scheduled COLON CANCER [facility] [employer] Test SCREENING: of Medicine COLONOSCOPY [code = COLON CANCER SCREENING: COLONOSCOPY] Future Scheduled HEPATITIS C [employer] [facility] SCREENING [code = of Medicin e HEPATITIS C SCREENING] Future Scheduled MAMMOGRAM ANNUAL [facility] Test [code = MAMMOGRAM of Medicin e ANNUAL] Future Scheduled TETANUS SHOT (ADULT) [employer] Test [code = TETANUS SHOT of Medi cine (ADULT)] Future Scheduled BMI FOLLOW UP PLAN [employer] Test [code = BMI FOLLOW of Medici ne UP PLAN] Future Scheduled HEPATITIS C [facility] [employer] Test SCREENING [code = of Medicin e HEPATITIS C SCREENING] Future Scheduled MEDICARE AWV [employer] Test (Initial) [code = of Medicin e MEDICARE AWV (Initial)] Future Scheduled FALL SCREEN [code = [employer] [facility] FALL SCREEN] of Medicine Future Scheduled PNEUMOVAX >=65 [facility] [employer] Test (PPSV23) [code = of Medicine PNEUMOVAX >=65 (PPSV23)] Future Scheduled FLU VACCINE > 6 [employer] Test MONTHS [code = FLU of Medici ne VACCINE > 6 MONTHS] Future Scheduled FALL SCREEN [code = [employer] Test FALL SCREEN] of Medicine Future Scheduled OSTEOPOROSIS [employer] [facility] SCREENING [code = of Medicin e OSTEOPOROSIS SCREENING] Future Scheduled COLON CANCER [facility] [employer] Test SCREENING: of Medicine COLONOSCOPY [code = COLON CANCER SCREENING: COLONOSCOPY] Future Scheduled MAMMOGRAM ANNUAL [facility] Test [code = MAMMOGRAM of Medicin e ANNUAL] Future Scheduled TETANUS SHOT (ADULT) [employer] Test [code = TETANUS SHOT of Medi cine (ADULT)] Future Scheduled BMI FOLLOW UP PLAN [employer] Test [code = BMI FOLLOW of Medici ne UP PLAN] Future Scheduled HEPATITIS C [employer] [facility] SCREENING [code = of Medicin e HEPATITIS C SCREENING] Future Scheduled MEDICARE AWV [employer] Test (Initial) [code = of Medicin e MEDICARE AWV (Initial)] Future Scheduled FALL SCREEN [code = [employer] [facility] FALL SCREEN] of Medicine Future Scheduled PNEUMOVAX >=65 [facility] [employer] Test (PPSV23) [code = of Medicine PNEUMOVAX >=65 (PPSV23)] Future Scheduled FLU VACCINE > 6 [facility] [employer] Test MONTHS [code = FLU of Medici ne VACCINE > 6 MONTHS] Future Scheduled PNEUMOVAX >=65 [employer] Test (PPSV23) [code = of Medicine PNEUMOVAX >=65 (PPSV23)] Future Scheduled PREVNAR >= 65 [employer] Test (PCV13) [code = of Medicine PREVNAR >= 65 (PCV13)] Future Scheduled COLON CANCER [facility] [employer] Test SCREENING: of Medicine COLONOSCOPY [code = COLON CANCER SCREENING: COLONOSCOPY] Future Scheduled MAMMOGRAM ANNUAL [facility] Test [code = MAMMOGRAM of Medicin e ANNUAL] Future Scheduled TETANUS SHOT (ADULT) [employer] Test [code = TETANUS SHOT of Medi cine (ADULT)] Future Scheduled BMI FOLLOW UP PLAN [employer] Test [code = BMI FOLLOW of Medici ne UP PLAN] Future Scheduled HEPATITIS C [facility] [employer] Test SCREENING [code = of Medicin e HEPATITIS C SCREENING] Future Scheduled ZOSTER VACCINE (1 of [employer] Test 2) [code = ZOSTER of Medicin e VACCINE (1 of 2)] Future Scheduled MEDICARE AWV [employer] [facility] (Initial) [code = of Medicin e MEDICARE AWV (Initial)] Future Scheduled FALL SCREEN [code = [employer] [facility] FALL SCREEN] of Medicine Future Scheduled FLU VACCINE > 6 [facility] [employer] Test MONTHS [code = FLU of Medici ne VACCINE > 6 MONTHS] Future Scheduled PNEUMOVAX >=65 [facility] [employer] Test (PPSV23) [code = of Medicine PNEUMOVAX >=65 (PPSV23)] Future Scheduled FLU VACCINE > 6 [employer] Test MONTHS [code = FLU of Medici ne VACCINE > 6 MONTHS] Future Scheduled COLON CANCER [employer] [facility] SCREENING: of Medicine COLONOSCOPY [code = COLON CANCER SCREENING: COLONOSCOPY] Future Scheduled MAMMOGRAM ANNUAL [facility] Test [code = MAMMOGRAM of Medicin e ANNUAL] Future Scheduled TETANUS SHOT (ADULT) [employer] Test [code = TETANUS SHOT of Medi cine (ADULT)] Future Scheduled BMI FOLLOW UP PLAN [employer] Test [code = BMI FOLLOW of Medici ne UP PLAN] Future Scheduled HEPATITIS C [facility] [employer] Test SCREENING [code = of Medicin e HEPATITIS C SCREENING] Future Scheduled ZOSTER VACCINE (1 of [employer] Test 2) [code = ZOSTER of Medicin e VACCINE (1 of 2)] Future Scheduled MEDICARE AWV [employer] [facility] (Initial) [code = of Medicin e MEDICARE AWV (Initial)] Future Scheduled FALL SCREEN [code = [employer] [facility] FALL SCREEN] of Medicine Future Scheduled PNEUMOVAX >=65 [facility] [employer] Test (PPSV23) [code = of Medicine PNEUMOVAX >=65 (PPSV23)] Future Scheduled FLU VACCINE > 6 [facility] [employer] Test MONTHS [code = FLU of Medici ne VACCINE > 6 MONTHS] Future Scheduled CANCER ANTIGEN 27.29 Ordered: [employer] Test [code = 55293-8] 09/12/2019 of Medicine Future Scheduled COLON CANCER [facility] [employer] Test SCREENING: of Medicine COLONOSCOPY [code = COLON CANCER SCREENING: COLONOSCOPY] Future Scheduled MAMMOGRAM ANNUAL [facility] Test [code = MAMMOGRAM of Medicin e ANNUAL] Future Scheduled TETANUS SHOT (ADULT) [employer] Test [code = TETANUS SHOT of Medi cine (ADULT)] Future Scheduled BMI FOLLOW UP PLAN [employer] Test [code = BMI FOLLOW of Medici ne UP PLAN] Future Scheduled HEPATITIS C [facility] [employer] Test SCREENING [code = of Medicin e HEPATITIS C SCREENING] Future Scheduled FALL SCREEN [code = [employer] Test FALL SCREEN] of Medicine Future Scheduled PNEUMOVAX >=65 [employer] Test (PPSV23) [code = of Medicine PNEUMOVAX >=65 (PPSV23)] Future Scheduled PREVNAR >= 65 [facility] Test (PCV13) [code = of Medicine PREVNAR >= 65 (PCV13)] Future Scheduled MEDICARE AWV [employer] [facility] (Initial) [code = of Medicin e MEDICARE AWV (Initial)] Future Scheduled FLU VACCINE > 6 [employer] Test MONTHS [code = FLU of Medici ne VACCINE > 6 MONTHS] Future Scheduled COLON CANCER [facility] [employer] Test SCREENING: of Medicine COLONOSCOPY [code = COLON CANCER SCREENING: COLONOSCOPY] Future Scheduled MAMMOGRAM ANNUAL [facility] Test [code = MAMMOGRAM of Medicin e ANNUAL] Future Scheduled TETANUS SHOT (ADULT) [employer] Test [code = TETANUS SHOT of Medi cine (ADULT)] Future Scheduled BMI FOLLOW UP PLAN [employer] Test [code = BMI FOLLOW of Medici ne UP PLAN] Future Scheduled HEPATITIS C [facility] [employer] Test SCREENING [code = of Medicin e HEPATITIS C SCREENING] Future Scheduled FALL SCREEN [code = [employer] [facility] FALL SCREEN] of Medicine Future Scheduled PNEUMOVAX >=65 [facility] [employer] Test (PPSV23) [code = of Medicine PNEUMOVAX >=65 (PPSV23)] Future Scheduled PREVNAR >= 65 [facility] [employer] Test (PCV13) [code = of Medicine PREVNAR >= 65 (PCV13)] Future Scheduled MEDICARE AWV [facility] [employer] Test (Initial) [code = of Medicin e MEDICARE AWV (Initial)] Future Scheduled FLU VACCINE > 6 [facility] [employer] Test MONTHS [code = FLU of Medici ne VACCINE > 6 MONTHS] Future Scheduled DEXA BONE DENSITY 1 Occurrences [employer] Test [facility] starting of Medicine [code = 67069] 03/29/2019 until 03/29/2020 Encounters Start End Encounter Admission Attending Care Care Encounter Source Date/Time Date/Time Type Type Clinicians Facility Department ID 2021-01-06 2021-01-06 Office PERRY Linares [id number] [facility] 10:28:51 10:48:51 Visit Pascual Razo 350.1.13.21 College [employer] 0.2.7.2.686 of [id number] Medi estephania 500 e 2020-07-08 2020-07-08 Office PERRY Linares [id number] [facility] 10:12:50 10:32:50 Visit Pascual Razo 350.1.13.21 College Fa[employer] 0.2.7.2.686 of [id number] Medi estephania 500 e 2020-07-04 2020-07-04 Outpatient MARYCHUY, SLE SLE [id number] [facility] 00:00:00 00:00:00 MOTHAFFAR 2020-03-11 2020-03-[address] [facility] [id number] [facility] 08:50:36 14:15:26 Visit Roseliaaffabhijit Dung 350.1.13.21 College Fahed 0.2.7.2.686 of [id number] Medi estephania 500 e 2020-02-06 2020-02-[address] [facility] [id number] [facility] 08:46:02 11:02:52 Visit Zain Dung 350.1.13.21 C ollege Miguel Angel 0.2.7.2.686 of [id number] Medi estephania 510 e 2020-01-23 2020-01-[address] [facility] [id number] [facility] 08:46:39 09:01:39 Visit Zain Dung 350.1.13.21 C [employer]lege [employer] 0.2.7.2.686 of [id number] Medi estephania 510 e 2020-01-16 2020-01-[address] [facility] [id number] [facility] 08:57:58 10:12:23 Visit Zain Dung 350.1.13.21 C [employer]lege [employer] 0.2.7.2.686 of [id number] Medi estephania 510 e 2020-01-08 2020-01-[address] [facility] [id number] [facility] 11:51:24 13:08:55 Visit Jazmine Jackson Dung 350.1.13.21 College 0.2.7.2.686 of [id number] Medi estephania 510 e 2020-01-08 2020-01-[address] [facility] [id number] [facility] 10:23:50 11:23:50 Visit Mothaffar Dung 350.1.13.21 College Fahed 0.2.7.2.686 of [id number] Medi estephania 500 e 2020-01-03 2020-01-03 Outpatient LIA [facility] [id number] [facility] 00:00:00 00:00:00 COLTEN 2020-01-03 2020-01-03 Outpatient EL LIA [facility] [id number] [facility] 00:00:00 00:00:00 COLTEN 2020-01-02 2020-01-02 [facility] [id number] [facility] 09:17:19 10:19:18 Visit Zain Dung 350.1.13.21 C [employer]lege [employer] 0.2.7.2.686 of [id number] Medi estephania 510 e 2019-12-26 2019-12-[address] [facility] [id number] [facility] 09:16:31 10:03:38 Visit Zain Dung 350.1.13.21 C ollege [employer] 0.2.7.2.686 of [id number] Medi estephania 510 e 2019-12-19 2019-12-[address] [facility] [id number] [facility] 09:26:20 10:56:19 Visit Zain Dung 350.1.13.21 C ollege [employer] 0.2.7.2.686 of [id number] Medi estephania 510 e 2019-12-08 2019-12-[address] [facility] [id number] [facility] 13:57:59 14:47:38 Visit Zain Dung 350.1.13.21 C ollege [employer] 0.2.7.2.686 of [id number] Medi estephania 510 e 2019-12-05 2019-12-[address] [facility] [id number] [facility] 11:17:44 11:17:44 Visit Zain Dung 350.1.13.21 C ollege [employer] 0.2.7.2.686 of [id number] Medi estephania 510 e 2019-09-29 2019-09-29 Outpatient [facility] [id number] [facility] 06:50:00 06:50:00 [id number] 2019-09-26 2019[id number] 00:00:00 00:00:00 [id number] 2019-09-19 2019-09-19 Office PERRY Santillan [id number] [facility] 08:42:29 11:00:53 Visit Zain Razo 350.1.13.21 C jd Michelle 0.2.7.2.686 of [id number] Medi estephania 510 e 2019-09-12 2019-09-12 Office PERRY Alvares [id number] [facility] 10:42:31 11:57:16 Visit Mayur Razo 350.1.13.21 Co llege 0.2.7.2.686 of [id number] Medi estephania 500 e 2019-03-28 2019-03-28 Office JHON FitzgeraldRed [id number] [facility] 11:15:11 16:23:29 Visit Colten Razo 350.1.13.21 College 0.2.7.2.686 of [id number] [facility] estephania 500 e Results Test Description Test Time Test Comments Results Result [facility] e Comments CT, CHEST, WITH IV 2020-07-04 Unlisted Reason CONTRAST 11:22:00 for Exam - Click Yes and Enter Reason [facility] - Below->[facility] SheldonName: christine Reason for DORIS WEINER Exam->[id number] MANDIE : 1950 Sex: F *FINAL REPORT CT Chest with contrast History:Metastatic breast cancer Comparison:01/03/2020 Technique: serial axial imaging was performed following up to 100cc of non ionic iodinated intravenous contrast as per departmental protocol. Multiplanar images are reconstructed and reviewed when indicated. This CT examination is performed using one or more of the following dose reduction techniques: Automated exposure control, adjustment of the mA and /or kV according to patient size, and/or use of iterative reconstruction technique. Findings:No mediastinal or hilar lymphadenopathy. Normal size heart. No pericardial effusion. No thoracic aortic aneurysm or dissection. No central pulmonary arterial filling defect. Patent central airways. No pleural effusion or pneumothorax. Multiple pleural nodules measure up to 2.5 cm in size and demonstrate no significant change. Postsurgical scar is seen within the lateral right breast. There are also changes of previous right axillary lymph node resection. No aggressive osseous lesion. Impression: 1. No definite metastatic disease in the chest.2. Continued stability of multiple bilateral pleural nodules.3. Postsurgical scar within the lateral right breast. Signed: Garry Gustafson MDReport Verified Date/Time: 07/04/2020 11:22:00 Reading Location: [facility] C013X Ortho Consult Reading Room -CREATININE 2020-07-04 09:08:00 Test Item Value Reference Range Interpretation Comme nts POC-CREATININE (DIOGO) 0.5 mg/dL 0.6-1.3 L : TE STED AT [facility] 7200 (test code = 1859) [facility] [id number]: Coil Tester /Synthetic Chemist ID = [id number] for MAYUR MARTINEZ POC-EGFR (DIOGO) (test 122 mL/min/1.73M2 code = 1860) CT, CHEST, WITH IV [id number] 09:19:00FINAL REPORT TECHNIQUE: CT of the chest, abdomen, and pelvis WITH intravenous contrast and WITHOUT oral contrast. Dose modulation, iterative reconstruction, and/or weight-based adjustment of the mA/kV was utilized to reduce the radiation dose to as low as reasonably achievable. INDICATION: Metastatic breast cancer. COMPARISON: CTs from 09/08/2019 at 03/22/2019 FINDINGS: LINES/TUBES: None. LUNGS AND AIRWAYS: There are multiple areas of subpleural nodularity which are unchanged and most likely subpleural lymph nodes, especially given the prominent lymph nodes in the super diaphragmatic fat. These are unchanged with examples of the largest as follows:*The right nodule measures 2x 2 0.6 cm, unchanged.*A left upper lung nodule measures 1.2 x 1.1 cm on axial image 9, unchanged.*Aleft basilar nodule measures 0.5 x 1.4 cm, previous 0.4 x 1.4 cm. PLEURA: The pleural spaces are clear.HEART AND MEDIASTINUM: The visualized thyroid gland is normal. Recent right axillary dissection. No mediastinal lymphadenopathy. There are some areas of pericardial recess which are unchanged. The supradiaphragmatic lymph nodes are unchanged and measure 1.1 x 1.6 cm and 0.9 x 1.7 cm. The heart and pe ricardium are within normal limits. Trace calcification of the left main coronary artery. Mild calcification of the descending thoracic aorta. HEPATOBILIARY: No focal hepatic lesions. Prior cholecystomy. The common hepatic duct is dilated up to 1.9 cm in diameter.SPLEEN: No splenomegaly. A hypodensity in the spleen measures 0.6 cm and is unchanged.PANCREAS: No focal masses or ductal dilatation. ADRENALS: No adrenal nodules.KIDNEYS/URETERS: No hydronephrosis, stones, or masses.PELVIC ORGANS/BLADDER: Unremarkable. PERITONEUM/RETROPERITONEUM: A large ventral hernia contains a majority of the small bowel as well as the transverse and right colon.LYMPH NODES: No lymphadenopathy. The mildly prominent but nonenlarged mesenteric lymph nodes are similar to the prior examination and likely reactive. VESSELS: Unremarkable. GI TRACT: No distention or wall thickening. The gastric pylorus is mildly prominent,possibly due to a contraction during the study. Large diverticulum of the second portion of the duodenum. Diverticulosis is scattered throughout the colon but worst in the sigmoid. The appendix is normal. BONES AND SOFT TISSUES: Recent right lumpectomy. There is packing material in the region of the pr eviously seen mass with some adjacent spiculation. The diffuse right breast skin thickening has increased. IMPRESSION: 1.There has been a recent right lumpectomy with packing material and adjacent fatstranding and soft tissue which could be postsurgical change. Questions distention of follow-up imaging is recommended. In addition, there has been a recent right axillary dissection with removal of the metastatic lymph nodes. 2.The right breast skin thickening has increased. This could be treatment related change. Close attention on follow-up imaging is recommended. 3.The bilateral pleural-based nodules in the lungs are unchanged and most likely subpleural lymph nodes. Pleural nodules are considered less likely given the lack of effusions. While these could be metastases given the large number of these nodules, this would be an atypical pattern for metastasis, and these may be reactive. 4.The common hepatic duct is dilated up to 1.9 cm in diameter, unchanged. In addition, there is moderate intrahepatic ductal dilation. This could be due to reservoir effect from prior cholecystectomy. If the patient does not have an obstructive pattern of liver function tests, no additional imaging is recommended. 5.A large ventral hernia contains a majority of the small bowel as well as the transverse and right colon. No obstruction. Signed: Abad Ramon MDReport Verified Date/Time: 01/03/2020 09:19:22 Reading Location: [address] Consult Reading Room CT, [id number] 09:19:00FINAL REPORT TECHNIQUE: CT of the chest, abdomen, and pelvis WITH intravenouscontrast and WITHOUT oral contrast. Dose modulation, iterative reconstruction, and/or weight-based ad justment of the mA/kV was utilized to reduce the radiation dose to as low as reasonably achievable. INDICATION: Metastatic breast cancer. COMPARISON: CTs from 09/08/2019 at 03/22/2019 FINDINGS: LINES/TUBES: None. LUNGS AND AIRWAYS: There are multiple areas of subpleural nodularity which are unchanged and most likely subpleural lymph nodes, especially given the prominent lymph nodes in the super diaphragmatic fat. These are unchanged with examples of the largest as follows:*The right nodule measures 2x 2 0.6 cm, unchanged.*A left upper lung nodule measures 1.2 x 1.1 cm on axial image 9, unchanged.*Aleft basilar nodule measures 0.5 x 1.4 cm, previous 0.4 x 1.4 cm. PLEURA: The pleural spaces are clear.HEART AND MEDIASTINUM: The visualized thyroid gland is normal. Recent right axillary dissection. No mediastinal lymphadenopathy. There are some areas of pericardial recess which are unchanged. The supradiaphragmatic lymph nodes are unchanged and measure 1.1 x 1.6 cm and 0.9 x 1.7 cm. The heart and pe ricardium are within normal limits. Trace calcification of the left main coronary artery. Mild calcification of the descending thoracic aorta. HEPATOBILIARY: No focal hepatic lesions. Prior cholecystomy. The common hepatic duct is dilated up to 1.9 cm in diameter.SPLEEN: No splenomegaly. A hypodensity in the spleen measures 0.6 cm and is unchanged.PANCREAS: No focal masses or ductal dilatation. ADRENALS: No adrenal nodules.KIDNEYS/URETERS: No hydronephrosis, stones, or masses.PELVIC ORGANS/BLADDER: Unremarkable. PERITONEUM/RETROPERITONEUM: A large ventral hernia contains a majority of the small bowel as well as the transverse and right colon.LYMPH NODES: No lymphadenopathy. The mildly prominent but nonenlarged mesenteric lymph nodes are similar to the prior examination and likely reactive. VESSELS: Unremarkable. GI TRACT: No distention or wall thickening. The gastric pylorus is mildly prominent,possibly due to a contraction during the study. Large diverticulum of the second portion of the duodenum. Diverticulosis is scattered throughout the colon but worst in the sigmoid. The appendix is normal. BONES AND SOFT TISSUES: Recent right lumpectomy. There is packing material in the region of the pr eviously seen mass with some adjacent spiculation. The diffuse right breast skin thickening has increased. IMPRESSION: 1.There has been a recent right lumpectomy with packing material and adjacent fatstranding and soft tissue which could be postsurgical change. Questions distention of follow-up imaging is recommended. In addition, there has been a recent right axillary dissection with removal of the metastatic lymph nodes. 2.The right breast skin thickening has increased. This could be treatment related change. Close attention on follow-up imaging is recommended. 3.The bilateral pleural-based nodules in the lungs are unchanged and most likely subpleural lymph nodes. Pleural nodules are considered less likely given the lack of effusions. While these could be metastases given the large number of these nodules, this would be an atypical pattern for metastasis, and these may be reactive. 4.The common hepatic duct is dilated up to 1.9 cm in diameter, unchanged. In addition, there is moderate intrahepatic ductal dilation. This could be due to reservoir effect from prior cholecystectomy. If the patient does not have an obstructive pattern of liver function tests, no additional imaging is recommended. 5.A large ventral hernia contains a majority of the small bowel as well as the transverse and right colon. No obstruction. Signed: Abad Ramon MDRephiren Verified Date/Time: 01/03/2020 09:19:22 Reading Location: [facility] B1 C013X Ortho Consult Reading Room -[id number] 07:57:00 Test Item Value Reference Range Interpretation Comments POC-CREATININE 0.4 mg/dL 0.6-1.3 L : TESTED AT [facility] (test [address] code = 1859) A, [facility] 7 7030: Coil Tester/Techni victorino ID = [id number] for MAYUR ASHBY POC-EGFR 158 mL/min/1.73M2 (BEAKER) (test code = 1860) TISSUE [id number] 10:11:00Surgical Pathology Report Case: [id number] Authorizing Provider: Zain Santillan MD Collected: 09/29/2019 0958 Ordering Location: [facility] Received: 09/29/2019 1015 SERVICES Pathologist: Lori Ashley MD Specimen: Breast, Right, right breast lumpectomy, short stitch superior, long lateral fresh for research REASON FOR ADDENDUM: TOREPORT HER2 FISH RESULT.HER2 AMPLIFICATION: NEGATIVE (NON-AMPLIFIED)RATIO (HER2:CEP17): 1.1AVERAGE NUMBER HER2 SIGNALS/ NUCLEUS: 1.9AVERAGE NUMBER [id number] SIGNALS/NUCLEUS: 1.8See scanned ProPath ResultAddendum electronically signed by Lori Ashley MD on 10/16/2019 at 10:11 AMBREAST, RIGHT, LUMPECTOMY: - INFILTRATING DUCTAL CARCINOMA, WITH FOCAL CRIBRIFORM AND LOBULAR FEATURES - TUMOR LOCATION: UPPER OUTER QUADRANT - MULTIPLE SCATTERED FOCI WITHIN THE TUMOR BED - GREATEST MICROSCOPIC DIMENSION OF LARGEST FOCUS: 12 MM - TUMOR CELLULARITY: 10% - TUMOR BED: 70 X 60 MM - HISTOLOGIC GRADE: 2/3 (2+2+3) BY ESBR CRITERIA - MITOTIC INDEX: 20 MITOSES PER 10 HPFS - FOCAL LYMPHATIC INVASION IS SEEN - TUMOR INFILTRATING LYMPHOCYTES, LOW - ASSOCIATED WITH CALCIFICATIONS - INVOLVING SKIN EPIDERMIS - WITH SKIN ULCERATION - WITH FOCAL PAGETOID INVOLVEMENT OF EPIDERMIS - FOCALLY INVOLVING SKELETAL MUSCLE - SURGICAL MARGINS: NEGATIVE - DEEP MARGIN : 8 MM - ALL OTHER MARGINS >10 MM - SKIN MARGINS ARE NEGATIVE - NO DUCTAL CARCINOMA IN SITU (DCIS) SEEN- STROMAL CHANGES ASSOCIATED WITH THERAPY EFFECT - WITH ASSOCIATED CALCIFICATIONS - TWO OF TWO LYMPH NODE POSITIVE FOR METASTATIC CARCINOMA (2/2) - LARGEST METASTATIC FOCUS : 3 MM - NO EXTRANODAL EXTENSION SEEN Signing Pathologist Direct Phone Line: [phone] signed by Lori Ashley MD on 10/06/2019 at 12:49 PMTUMOR STAGING (PATHOLOGY) S/P NEOADJUVANT THERAPY Anatomic site of tumor : Right breast Histologic type : Invasive ductal carcinoma, with focal cribriform and lobular features Histologic grade : G2 Tumor size : 12 mm Primary tumor (T): ypT4b(m) Lymph node (N): ypN1a Stage grouping: clinically metastatic Margins : Negative LYMPH NODE SUMMARY Total # of sentinel lymph nodes : 0 Total # of non-sentinel lymph nodes : 2 Total # of positive sentinel lymph nodes : 2 BIOMARKERS PERFORMED ON SECTION A20 ESTROGEN RECEPTOR: POSITIVE Proportion score: 5/5 Intensity score: 3/3 SUMMARY: 95% POSITIVE,STRONG INTENSITY PROGESTERONE RECEPTOR: POSITIVE Proportion score: 5/5 Intensityscore: 2/3 SUMMARY: 80% POSITIVE, MODERATE INTENSITY HER 2 OVER-EXPRESSION: EQUIVOCAL (SCORE: 2+) - TISSUE SENT FOR FISH ANALYSIS KI 67: 2% IN LOW GRADE CRIBRIFORM AREAS (CUT OFF 20%) 32% IN AREAS WITH SOLID PROLIFERATION (CUT OFF 20%)Microscopic examination reveals multiple scattered foci of residual invasive ductal carcinoma within a 70 x 60 mm fibrotic tumor bed. The largest contiguous focus measures 12 mm. The tumor invades into the dermis and epidermis with overlying ulceration and focal pagetoid spread.The overall tumor cellularity is approximately 10%. The tumor exhibits a heterogeneous morphology with areas of cribriforming and lower grade nuclei to other areasof more solid proliferation with a high mitotic rate. All margins are negative. INVASIVE CARCINOMA OF THE BREAST: Resection (Breast.Invasive - All Specimens)8th Edition - Protocol posted: 09/21/2018SPECIMEN Procedure: Excision (less than total mastectomy) Specimen Laterality: Right TUMOR Tumor Site: Upper quadrant Histologic Type: Invasive carcinoma of no special type (invasive ductal carcinoma, not otherwise specified) Histologic Type Comments: with focal cribriform features Glandular (Acinar) / Tubular Differentiation: Score 2 Nuclear Pleomorphism: Score 2 Mitotic Rate: Score 3 Overall Grade: Grade 2 (scores of 6 or 7) Tumor Size: Greatest dimension of largest invasive focus (Millimeters): 12 mm Tumor Focality: Multiple foci of inv asive carcinoma Ductal Carcinoma In Situ (DCIS): Not identified Lobular Carcinoma In Situ (LCIS): No LCIS in specimen Tumor Extent: Skin Invasion: Invasive carcinoma directly invades into the dermis or epidermis with skin ulceration (classified as T4b) Skeletal Muscle: Carcinoma invades skeletal muscle Lymphovascular Invasion: Present Dermal Lymphovascular Invasion: Present Microcalcifications: Present in invasive carcinoma Microcalcifications: Present in non-neoplastic tissue Treatment Effect in the Breast: Probable or definite response to presurgical therapy in the invasive carcinoma Treatment Effect in the Lymph Nodes: No definite response to presurgical therapy in metastatic carcinoma MARGINS Invasive Carcinoma Margins: Uninvolved by invasive carcinoma Distance from Closest Margin (Millimeters): 8 mm Closest Margin: Posterior LYMPH NODES Regional Lymph Nodes: Involved by tumor cells Number ofLymph Nodes with Macrometastases (> 2 mm): 2 Number of Lymph Nodes with Micrometastases (> 0.2 mm to 2 mm and / or > 200 cells): 0 Size of Largest Metastatic Deposit (Millimeters): 3 mm Extranodal Extension: Not identified Number of Lymph Nodes Examined: 2 PATHOLOGIC STAGE CLASSIFICATION (pTNM, AJCC 8th Edition) TNM Descriptors: m (multiple foci of invasive carcinoma) TNM Descriptors: y (post-treatment) Primary Tumor (pT): pT4b Regional Lymph Nodes (pN): Category (pN): pN1a SPECIAL STUDIES Breast Biomarker Testing Performedon Previous Biopsy: Estrogen Receptor (ER): Positive (percentage): 95 % Breast Biomarker Testing Performed on Previous Biopsy: Progesterone Receptor (PgR): Positive (percentage): 80 % Breast Biomarker Testing Performed on Previous Biopsy: HER2 (by immunohistochemistry): Equivocal (Score 2+) Testing Performed on Case Number: PERFORMED ON BLOCK A20 [id number] x 1, 15251 x 4, 43234 x 1, 22922 x 1, 37021 X 1Malignant neoplasm of right female breastRight breast lumpectomy, short stitch superior, long lateral fresh for research The specimen is received fresh for intraoperative gross consultation labeled with the patient's name and medical record number as "right breast' with description "right breast lumpectomy, short stitch superior, long lateral" is a 275 gm, 9 x 10 x 5 cm lumpectomy specimen which is oriented by short suture superior and a long suture lateral. The skin ellipse measures 11 x 6 cm. There is a puckering at the center of the skin that measures 3.5x 2.5 cm, located 1 cm from superior skin margin, 1.5 cm from inferior skin margin, 2 cm from medialand 3 cm from lateral skin margin. The specimen is inked and serially sectioned into 15 consecutively ordered slices. No clips identified. There is a piper-white and firm mass mass present in slices 5-12measuring 7 x 6 x 3.5 cm. It is 0.2 cm from closest deep margin, 1.3 cm from closest inferior and 1.5 cm from closest superior and 2 cm from lateral margin. The 7 cm mass consists of at least two well-defined masses that measure 5 and 1.6 cm in greatest dimension by a thin loose fibrous tissue. The tumor is invading the overlying skin. At the deep portion of the specimen, there are small fragments of skeletal muscle adjacent to the tumor that measures 2 x 0.3 x 0.2 cm in greatest dimension. One possible lymph node identified that measures 1.5 x 0.7 x 0.5 cm. Ink code:Blue, superior, red inferior, black posterior, yellow anterior. Section code: A1-A15, complete section of the tumor and adjacent breast tissue from inferior deep to superficial superior (A3 to A13 with tumor); A16, one lymph node trisected; A17 and 18, slice 7; A19-A21, slice 9; A22, customer sales representative section of slice 10; A23 to A24, perpendicular section of medial margin entirely submitted; A25 to A32, perpendicular sections of lateral margin entirely submitted. SM/plBREAST, RIGHT LUMPECTOMY: - TUMOR IDENTIFIED WITH NEGATIVE MARGINSResults reported by Dr. Ashley to Dr. Santillan at 10:31 a.m. Performed.BIOMARKERS PERFORMED ON A20ER - POSITIVEPR - POSITIVEHER2 - EQUIVOCALKI-67 - HIGH P63 (A12) - NEGATIVECAP REGULATION: FIXATION TIME FOR BIOMARKERS ASSESSMENTCollection date and time: 03/06/20; 0958 HRSPlacedin fixative date and time: 09/29/19; 10:31 HRSRemoved from formalin date and time: 09/30/19; 0400 HRS Methodology:Fixation type and length: tissue was fixed in 10% neutral buffered formalin for a minimal of at least 6 hours and not longer than 72 hours. Antibody and Assay Methodology: Antibodies for ER, PgR, Her2 and Ki67 were assessed using clones SP1 (Lavon), 1294 (DAKO), 4B5 (FDA ApprovedVentana Pathway) and 30-9 (Lavon) respectively. Control Slides Examined: In-house known ER, WV, HER2 and Ki67 positive controls were evaluated along with test tissue. These control slides run alongside of the patients sample show appropriate staining. Internal controls when available are evaluated. I nterpretive Criteria: The staining results according to the ASCO/CAP guidelines for HER2 (Cammy SINGER et al. Arch Pathol Lab Med 2017, September 15) and ER/WV (Huey YING et al. Arch Pathol Lab Med 2010; 134:e48-e72) by ASCO/CAP guidelines.ER and WV "positive" requires greater or equal to 1% tumor cells s howing nuclear staining.HER 2 "positive" (3+) requires circumferential membrane staining that is complete and intense in more than 10% of tumor cells. HER2 "equivocal" (2+) requires weak to moderate complete membrane staining observed in more than 10% of tumor cells .HER2 "negative" (1+) requires incomplete membrane staining that is faint/barely perceptible and in more than 10%of tumor cells. HER2 "negative (0) requires no staining or membrane staining that is incomplete and is faint/barely perceptible and in less than or equal to 10% of tumor cells The ER/WV Proportion Score indicates the proportion of positive staining tumor cells (0 = none; 1 < 1/100; 2 = 1/100-1/10; 3 = 1/10-1/3; 4 = 1/3-2/3; 5> 2/3). The intensity score indicates the average intensity of positive staining tumor cells (0 = none; 1 = weak; 2 = intermediate; 3 = strong). For the purpose of defining "positive", the proportion and intensity scores were added to obtain a total score (range 0-8). ER and PgR "positive" (total score >2) were defined in studies correlating IHC total scores with clinical outcome in patientsreceiving hormonal therapy (see: Modern Pathol 11:155, 1998; J Clin Oncol 17:1474, 1999; Int J Cancer 89:111, 2000; Breast Cancer Res Treat 76:S36[abst#30], 2002).The interpretation of this case included the use of immunohistochemistry or special stains.Control Slides Examined: In- house known positive controls were evaluated along with the test tissue. These control slides run alongside of the patients sample show appropriate staining. Internal positive and negative controls when available are evaluated Immunohistochemistry technical testing was performed at [facility], Pathology Laboratory where it was developed and its performance characteristics were determined. It has not been cleared or approved by the U.S. Food and Drug Administration. The FDA has determined that such clearance or approval is not necessary. The test is used for clinical purposes. It should not be regarded as investigational or for research. This laboratory is certified under the Clinical LaboratoryImprovement Amendments of 1988 (CLIA-88) as qualified to perform high complexity clinical laboratorytesting.[facility], Department of Pathology, [address] [place] [id number], [id number] 10:55:00 Test Item Value Reference Range Interpretation Comments SODIUM (BEAKER) (test code = 381) 140 meq/L 136-145 POTASSIUM (BEAKER) (test code = 3.8 meq/L 3.5-5.1 379) CHLORIDE (BEAKER) (test code = 382) 106 meq/L 98-107 CO2 (BEAKER) (test code = 355) 28 meq/L 22-29 Coil Tester ID - JUL CBUN AND [id number] 10:55:00 Test Item Value Reference Range Interpretation Comments BLOOD UREA NITROGEN 8 mg/dL 7-21 (BEAKER) (test code = 354) CREATININE (BEAKER) 0.64 mg/dL 0.57-1.25 (test code = 358) EGFR (BEAKER) (test 92 mL/min/1.73 ESTIMA CHRISTINE GFR IS code = 1092) sq m NOT ACCURATE CREATININE CLEARANCE IN PREDICTING GLOMERULAR FILTRATION RATE . ESTIMATED GFR I S NOT APPLICABLE FOR DIALYSIS PATIEN TS. Coil Tester ID - NIRANJAN [id number] 10:36:00 Test Item Value Reference Range Interpretation Comments HEMOGLOBIN (BEAKER) (test code = 13.2 GM/DL 11.2-15.7 410) Coil Tester ID - [id number], [id number] 12:25:00FINAL REPORT CT scan of the chest, abdomen and pelvis. HISTORY: Metastatic breast cancer. Comparison study: March 22, 2019. TECHNIQUE: Contiguous helical slices were acquired through the chest, abdomen and pelvis post administration of oral and intravenous contrast. This exam was performed according to our department dose optimization program which includes automated exposure control, adjustment of the mA and/or kV according to the patient's size and/or use of iterative reconstruction technique. FINDINGS: The mediastinum demonstrates no suspicious masses or adenopathy. Thereis a 4.2 x 3.7 cm mass in the lateral aspect of the right breast, previously measuring 4.5 x 3.8 cm.A second adjacent mass is seen measuring 1.8 x 1.5 cm, previously 2.0 x 1.4 cm. There are no pleuraleffusions. Within the right cardiophrenic fat is a 1.8 x 1.5 cm nodule and in the left cardiophrenicfat is a 1.7 x 1.2 cm nodule, both stable. The tracheobronchial tree is clear with no endobronchiallesions. The pulmonary parenchyma demonstrates a 2.3 x 2.4 cm nodule in the right lung apex, stable in size. A stable 1.6 x 1.3 cm nodule is seen in the left upper lobe on image 10. Pleural nodularity is seen in the costophrenic angle regions including a 1.5 x 0.4 cm focus on the right side and 2.2 x 0.6 cm focus on the left side. Multiple other areas of pleural-based nodularity are seen in the lungswhich are grossly stable. The liver, pancreas, adrenal glands and kidneys are unremarkable. Cystectomy clips are seen with significant dilatation of the common hepatic duct measuring up to 1.7 cm. No significant intrahepatic biliary dilatation is seen. There is a stable tiny low-attenuation splenic lesion. There are no dilated loops of bowel seen suggest obstruction. A duodenal diverticulum is noted.There is a large ventral hernia measuring 24.5 x 9.0 cm in maximal transverse diameter. It contains multiple nondistended bowel loops. Diverticulosis is seen without evidence of diverticulitis. No freefluid or free air is seen. The aorta is normal in caliber. There is no suspicious adenopathy. Bone windows demonstrate degenerative changes. IMPRESSION:1. Masses in the right breast, similar to previous.2. Stable pleural masses. This could represent metastatic breast cancer. However, the peripheral location of the nodules is somewhat atypical and other etiologies are possible.3. Status post cholecystectomy with dilatation of the CBD. A duodenal diverticulum is noted. MRCP could be performed.4. Large ventral hernia containing nondistended bowel.5. Diverticulosis. Signed: Johnie Dawn [place] Verified Date/Time: 09/08/2019 12:25:22 Reading Location: [address] Ortho Consult Reading Room CT, CHEST, WITH [id number] 12:25:00FINAL REPORT CT scan of the chest, abdomen and pelvis. HISTORY: Metastatic breast cancer. Comparison study: March 22, 2019. TECHNIQUE: Contiguous helical slices were acquired through the chest, abdomen and pelvis post administration of oral and intravenous contrast. This exam was performed according to our department dose optimization program which includes automated exposure control, adjustment of the mA and/or kV according to the patient's size and/or use of iterative reconstruction technique. FINDINGS: The mediastinum demonstrates no suspicious masses or adenopathy. Thereis a 4.2 x 3.7 cm mass in the lateral aspect of the right breast, previously measuring 4.5 x 3.8 cm.A second adjacent mass is seen measuring 1.8 x 1.5 cm, previously 2.0 x 1.4 cm. There are no pleuraleffusions. Within the right cardiophrenic fat is a 1.8 x 1.5 cm nodule and in the left cardiophrenicfat is a 1.7 x 1.2 cm nodule, both stable. The tracheobronchial tree is clear with no endobronchiallesions. The pulmonary parenchyma demonstrates a 2.3 x 2.4 cm nodule in the right lung apex, stable in size. A stable 1.6 x 1.3 cm nodule is seen in the left upper lobe on image 10. Pleural nodularity is seen in the costophrenic angle regions including a 1.5 x 0.4 cm focus on the right side and 2.2 x 0.6 cm focus on the left side. Multiple other areas of pleural-based nodularity are seen in the lungswhich are grossly stable. The liver, pancreas, adrenal glands and kidneys are unremarkable. Cystectomy clips are seen with significant dilatation of the common hepatic duct measuring up to 1.7 cm. No significant intrahepatic biliary dilatation is seen. There is a stable tiny low-attenuation splenic lesion. There are no dilated loops of bowel seen suggest obstruction. A duodenal diverticulum is noted.There is a large ventral hernia measuring 24.5 x 9.0 cm in maximal transverse diameter. It contains multiple nondistended bowel loops. Diverticulosis is seen without evidence of diverticulitis. No freefluid or free air is seen. The aorta is normal in caliber. There is no suspicious adenopathy. Bone windows demonstrate degenerative changes. IMPRESSION:1. Masses in the right breast, similar to previous.2. Stable pleural masses. This could represent metastatic breast cancer. However, the peripheral location of the nodules is somewhat atypical and other etiologies are possible.3. Status post cholecyste ctomy with dilatation of the CBD. A duodenal diverticulum is noted. MRCP could be performed.4. Largeventral hernia containing nondistended bowel.5. Diverticulosis. Signed: Johnie Dawn MDR[facility]ort Verified Date/Time: 09/08/2019 12:25:22 Reading Location: [address] Consult Reading Room E lectronically signed by: JOHNIE DANW M.D. on 09/08/2019 12:25 PM [id number] 11:24:00 Test Item Value Reference Range Interpretation Comments POC-CREATININE 0.6 mg/dL 0.6-1.[address] [facility] (test [address] code = 1859) [facility] 7703 0 POC-EGFR 99 mL/min/1.73M2 ([place]) (test code = 1860) RAD, BONE DENSITY [id number] 09:47:00Reason for Exam:->c50.911FINAL REPORT Exam: Bone mineral density study. History: Osteopenia. Comparison: None Discussion: Evaluation of the left hip, and lumbar spine was performed utilizing DEXA Hologic bone densitometer. The study is technically adequate. Left hip total bone mineral density: 0.834gm/cm2, T-score is -1.0, Z-score is 0.4. Left hip femoral neck bone mineral density: 0.665gm/cm2, T-score is -1.8, Z-score is -0.1. Lumbar spine total bone mineral density: 0.858gm/cm2, T-score is -1.7, Z-score is 0.3. Impression:1. Osteopenia of the left hip, fracture risk is increased2. Osteopenia of the lumbar spine, fracture risk is increased Least significant change (LSC) for bone mineral density as provided by life consultant is 0.023 g/cm2 for lumbar spine and 0.027 g/cm2 for total hip. 10 -yearfracture risk per WHO Fracture Risk Assessment Tool (FRAX) for:Major osteoporotic fracture is 5.2%Hip fracture is 0.7%The above fracture probability is calculated for an untreated patient. Fracture probably may be lower if the patient has received treatment. All treatment decisions require clinical judgment and consideration of individual patient factors, including patient preferences, comorbidities,previous drug use and risk factors not captured in the FRAX model (e.g. frailty, falls, vitamin D deficiency, increased bone turnover, interval significant decline in BMD). The patient's fracture riskis compared to an age-matched control. Medical evaluation for secondary causes of low bone bone mineral density may be appropriate. Correlate clinically for the necessity and timing of the next bone mineral density study. Signed: Martha Roth [facility] Verified Date/Time: 03/30/2019 09:47:51 Reading Location: [facility] Room [address] [place] [address] BONE AND/OR JOINT IMAGING, WHOLE [id number] 16:45:00FINAL REPORT PROCEDURE: BONE SCAN, WHOLE BODY CPT CODE: 13236 INDICATION: Right breast cancer PROTOCOL: 20.8 mCi of Tc-99m MDP was injected intravenously. Whole body and selected spot images were obtained approximately 3 hours later. FINDINGS: Tracer activity is diffusely, moderately increased within the calvarium. There is mild focal increase in the shoulders and wrists and more diffuse increase in the hips, knees, and feet. Distribution within the spine is irregular with greatest increase in the mid and lower lumbar spine. There is focal moderate tracer accumulation in the superior lateral aspect of the right breast. IMPRESSION: 1. No specific evidence of bony neoplastic disease.2. Focal increase in the right breast, however, is most worrisome for neoplastic etiology.3. Degenerative changes in the spine and multiple peripheral joints.4. Benign hyperostosis of the skull. Images for comparison/correlation were today's torso CT. Signed: Katharine Bautista MDR[facility]ort Verified Date/Time: 03/22/2019 16:45:11 Reading Location: [address] Reading Room CT, CHEST, WITH [id number] 13:26:00FINAL REPORT TECHNIQUE: CT of the chest, abdomen, and pelvis WITH intravenouscontrast and WITH oral contrast. Dose modulation, iterative reconstruction, and/or weight-based adjustment of the mA/kV was utilized to reduce the radiation dose to as low as reasonably achievable. INDICATION: 68-year-old woman with breast cancer. COMPARISON: None. FINDINGS: LINES/TUBES: None. LUNGS AND AIRWAYS: Central airways are patent. 3 mm subpleural noncalcified nodule in the right middle lobe(axial lung window series image 38). Mild atelectasis in both lung bases.PLEURA: Bilateral pleural-based masses, the largest on the right measures 2.4 x 2.6 cm and the largest on the left measures 1.4 x 1.2 cm. Mild nodularity along the fissures bilaterally.HEART AND MEDIASTINUM: The visualized thyroid gland is normal. No significant mediastinal or hilar lymphadenopathy. The heart and pericardium arewithin normal limits. HEPATOBILIARY: No focal hepatic lesions. Prior cholecystectomy. The common duct is prominent and measures up to 1.8 cm in diameter. Mild prominence of bile ducts.SPLEEN: No splenomegaly. 0.8 cm hypodense lesion in the spleen.PANCREAS: No focal masses or ductal dilatation. ADRENALS: No adrenal nodules.KIDNEYS/URETERS: No hydronephrosis, stones, or solid mass lesions.PELVIC ORGANS/BLADDER: Unremarkable. PERITONEUM/RETROPERITONEUM: No free air or fluid.LYMPH NODES: Prominent 1.7 cm right axillary lymph node. Prominent cardiophrenic lymph nodes measure up to 1.2 cm.VESSELS: Unremarkable. GI TRACT: No distention or wall thickening. Colonic diverticula. Normal appendix. Periampullary duodenal diverticulum. BONES AND SOFT TISSUES: Degenerative changes of the visualized spine. 4.5 x4 cm subcutaneous mass in the upper outer right breast likely correlates with reported breast cancer. Large periumbilical ventral hernia contains multiple nonstrangulated loops of small bowel and colon. IMPRESSION: Chest CT:*Right breast mass, which correlates with reported breast cancer.*Metastatic lymphadenopathy in the right axilla and cardiophrenic region.*Bilateral pleural metastases.*Nonspecific 3 mm pulmonary nodule in the right middle lobe. Abdomen and pelvis CT:*Indeterminate subcentimeterhypodensity in the spleen.*Prominent common bile duct, which may be due to postcholecystectomy reservoir effect. This finding may be correlated with liver function tests to assess for cholestasis and the need for further evaluation with MRCP or ERCP.*Large ventral hernia contains multiple nonstrangulated loops of small bowel and colon. Signed: Dee Frias [facility] Verified Date/Time: 03/22/2019 13:26:28 Reading Location: [address] Radiology Reading Room CT, [id number] 13:26:00FINAL REPORT TECHNIQUE: CT of the chest, abdomen, and pelvis WITH intravenouscontrast and WITH oral contrast. Dose modulation, iterative reconstruction, and/or weight-based adjustment of the mA/kV was utilized to reduce the radiation dose to as low as reasonably achievable. INDICATION: 68-year-old woman with breast cancer. COMPARISON: None. FINDINGS: LINES/TUBES: None. LUNGS AND AIRWAYS: Central airways are patent. 3 mm subpleural noncalcified nodule in the right middle lobe(axial lung window series image 38). Mild atelectasis in both lung bases.PLEURA: Bilateral pleural-based masses, the largest on the right measures 2.4 x 2.6 cm and the largest on the left measures 1.4 x 1.2 cm. Mild nodularity along the fissures bilaterally.HEART AND MEDIASTINUM: The visualized thyroid gland is normal. No significant mediastinal or hilar lymphadenopathy. The heart and pericardium are within normal limits. HEPATOBILIARY: No focal hepatic lesions. Prior cholecystectomy. The common duct is prominent and measures up to 1.8 cm in diameter. Mild prominence of bile ducts.SPLEEN: No splenomegaly. 0.8 cm hypodense lesion in the spleen.PANCREAS: No focal masses or ductal dilatation. ADRENALS: No adrenal nodules.KIDNEYS/URETERS: No hydronephrosis, stones, or solid mass lesions.PELVIC ORGANS/BLADDER: Unremarkable. PERITONEUM/RETROPERITONEUM: No free air or fluid.LYMPH NODES: Prominent 1.7 cm right axillary lymph node. Prominent cardiophrenic lymph nodes measure up to 1.2 cm.VESSELS: Unremarkable. GI TRACT: No distention or wall thickening. Colonic diverticula. Normal appendix. Periampullary duodenal diverticulum. BONES AND SOFT TISSUES: Degenerative changes of the visualized spine. 4.5 x4 cm subcutaneous mass in the upper outer right breast likely correlates with reported breast cancer. Large periumbilical ventral hernia contains multiple nonstrangulated loops of small bowel and colon. IMPRESSION: Chest CT:*Right breast mass, which correlates with reported breast cancer.*Metastatic l ymphadenopathy in the right axilla and cardiophrenic region.*Bilateral pleural metastases.*Nonspecific 3 mm pulmonary nodule in the right middle lobe. Abdomen and pelvis CT:*Indeterminate subcentimeterhypodensity in the spleen.*Prominent common bile duct, which may be due to postcholecystectomy reservoir effect. This finding may be correlated with liver function tests to assess for cholestasis and the need for further evaluation with MRCP or ERCP.*Large ventral hernia contains multiple nonstrangulated loops of small bowel and colon. Signed: Dee Frias [facility] Verified Date/Time: 03/22/2019 13:26:28 Reading Location: [address] Radiology Reading Room [id number] 11:50:00 Test Item Value Reference Range Interpretation Comments POC-CREATININE 0.4 mg/dL 0.6-1.3 L TESTED AT [facility] (BEAKER) (test [place] code = 1859) [address] POC-EGFR (BEAKER) 159 mL/min/1.73M2 (test code = 1860) BODY FLUID CULTURE + GRAM [id number] 07:29:00 Test Item Value Reference Range Interpretation Comments CULTURE (BEAKER) (test code No growth = 1095) GRAM STAIN RESULT (BEAKER) <1+ WBCs (test code = 1123) GRAM STAIN RESULT (BEAKER) No organisms seen (test code = 30790) [id number] 11:49:00Medical Cytology Report Case: [id number] Authorizing Provider: Jaqui Pisano MD Collected: 01/17/2018 1509 Ordering Location: [facility] Emergency Department Received: 01/18/2018 1208 Pathologist: Rox Schulz Specimen: Pleural, Right RIGHT PLEURAL FLUID (CYTOSPINS AND CELL BLOCK): - NEGATIVE FOR MALIGNANCY CHRONIC INFLAMMATION PRESENT Signing Pathologist Direct Phone Line: [phone] signed by Rox Schulz on 01/19/2018 at 11:49 [id number], [id number] pleural effusion, history of breast cancerRIGHT PLEURAL [id number] mls bloody; 4 cytospins, cell blockCollected: [id number]: [id number] [facility], Department of Pathology, [address] [place] [address], [facility], Department of Pathology, [address] [place] [address], [id number] FLUID CELL COUNT WITH [id number] 13:58:00 Test Item Value Reference Range Interpretation Comments APPEARANCE FLUID (BEAKER) (test Hazy Clear A code = 510) COLOR FLUID (BEAKER) (test code [place] Colorless, Straw A = 511) RBC FLUID (BEAKER) (test code = 65165 /cu mm <=1 H 513) ADJUSTED WBC FLUID (BEAKER) 600 /cu mm <=5 H (test code = 1691) LINING CELLS (BEAKER) (test 0 /cu mm <=1 code = 1590) NEUTROPHILS FLUID (BEAKER) 6 % (test code = 1656) LYMPHS FLUID (BEAKER) (test 87 % code = 488) MONO/MACROPHAGE FLUID (BEAKER) 7 % (test code = 489) EOSINOPHILS FLUID (BEAKER) 0 % (test code = 491) BASO FLUID (BEAKER) (test code 0 % = 492) CONTAINER BODY FLUID (BEAKER) EDTA Tube (test code = 2873) LACTATE DEHYDROGENASE (LDH), BODY [id number] 09:15:00 Test Item Value Reference Range Interpretation Comments LACTATE DEHYDROGENASE FLUID 220 U/L Light's criteria (BEAKER) (test code = 634) identifies effusions if one or more are pre Absence of reference range indicates that normals have not been defined.Assay performance has not been validated for this type of specimen.[id number] 06:40:00 Test Item Value Reference Range Interpretation Comments MAGNESIUM (BEAKER) (test code = 1.8 mg/dL 1.6-2.6 627) BASIC METABOLIC [id number] 06:40:00 Test Item Value Reference Range Interpretation Comments SODIUM (BEAKER) 135 meq/L 136-145 L (test code = 381) POTASSIUM (BEAKER) 4.0 meq/L 3.5-5.1 (test code = 379) CHLORIDE (BEAKER) 101 meq/L 98-107 (test code = 382) CO2 (BEAKER) (test 26 meq/L 22-29 code = 355) BLOOD UREA NITROGEN 9 mg/dL 7-21 (BEAKER) (test code = 354) CREATININE (BEAKER) 0.53 mg/dL 0.57-1.25 L (test code = 358) GLUCOSE RANDOM 83 mg/dL 70-105 (BEAKER) (test code = 652) CALCIUM (BEAKER) 9.1 mg/dL 8.4-10.2 (test code = 697) EGFR (BEAKER) (test 115 mL/min/1.73 ESTIM ATED GFR IS code = 1092) sq m NOT ACCURATE CREATININE CLEARANCE IN PREDICTING GLOMERULAR FILTRATION RATE . ESTIMATED GFR I S NOT APPLICABLE FOR DIALYSIS PATIEN TS. CBC W/PLT COUNT & AUTO [id number] 06:07:00 Test Item Value Reference Range Interpretation Comments WHITE BLOOD CELL COUNT (BEAKER) 6.2 K/ L 3.5-10.5 (test code = 775) RED BLOOD CELL COUNT (BEAKER) 4.49 M/ L 3.93-5.22 (test code = 761) HEMOGLOBIN (BEAKER) (test code = 12.4 GM/DL 11.2-15.7 410) HEMATOCRIT (BEAKER) (test code = 37.0 % 34.1-44.9 411) MEAN CORPUSCULAR VOLUME (BEAKER) 82.4 fL 79.4-94.8 (test code = 753) MEAN CORPUSCULAR HEMOGLOBIN 27.6 pg 25.6-32.2 (BEAKER) (test code = 751) MEAN CORPUSCULAR HEMOGLOBIN CONC 33.5 GM/DL 32.2-35.5 (BEAKER) (test code = 752) RED CELL DISTRIBUTION WIDTH 13.3 % 11.7-14.4 (BEAKER) (test code = 412) PLATELET COUNT (BEAKER) (test 184 K/CU MM 150-450 code = 756) MEAN PLATELET VOLUME (BEAKER) 11.7 fL 9.4-12.3 (test code = 754) NUCLEATED RED BLOOD CELLS 0 /100 WBC 0-0 (BEAKER) (test code = 413) NEUTROPHILS RELATIVE PERCENT 56 % (BEAKER) (test code = 429) LYMPHOCYTES RELATIVE PERCENT 29 % (BEAKER) (test code = 430) MONOCYTES RELATIVE PERCENT 11 % (BEAKER) (test code = 431) EOSINOPHILS RELATIVE PERCENT 2 % (BEAKER) (test code = 432) BASOPHILS RELATIVE PERCENT 1 % (BEAKER) (test code = 437) NEUTROPHILS ABSOLUTE COUNT 3.49 K/ L 1.56-6.13 (BEAKER) (test code = 670) LYMPHOCYTES ABSOLUTE COUNT 1.82 K/ L 1.18-3.74 (BEAKER) (test code = 414) MONOCYTES ABSOLUTE COUNT (BEAKER) 0.71 K/ L 0.24-0.36 H (test code = 415) EOSINOPHILS ABSOLUTE COUNT 0.14 K/ L 0.04-0.36 (BEAKER) (test code = 416) BASOPHILS ABSOLUTE COUNT (BEAKER) 0.04 K/ L 0.01-0.08 (test code = 417) IMMATURE GRANULOCYTES-RELATIVE 0 % 0-1 PERCENT (BEAKER) (test code = 2801) LACTATE DEHYDROGENASE (LDH)2018-01-17 19:49:00 Test Item Value Reference Range Interpretation Comments LACTATE DEHYDROGENASE 305 U/L 125-220 H Specim en slightly (BEAKER) (test code = hemoly zed 635) U/S, [id number] 16:56:00Laterality?->RightReason for exam:- >SHORTNESS OF BREATHShould this be performed at the bedside?->NoFINAL REPORT Ultrasound-guided thoracentesis. Clinical History: SHORTNESS OF BREATH. Informed consent was obtained from the patient and the risks of the procedure were explained including bleeding, infection, pneumothorax and visceral injury. Sedation: 1% Xylocaine was used as local sedation. Conscious sedation protocol was not utilized as no systemic analgesia was administered. Technique: Using sterile technique, ultrasound guidance and 4 Kiswahili coaxial needle, the tip of theneedle was inserted into the right pleural space. The needle was removed and the outer catheter wasconnected to plastic tubing. The tubing then was connected to a Vacutainer bottle. The procedure yiel ded 1250 cc of thin bloody fluid. The catheter was removed. No immediate complications developed. Labs were sent as requested. Estimated blood loss: None Patient disposition: The patient was asymptomatic at the end of the exam. A followup chest x-ray will be performed while the patient is in the department to ensure that no pneumothorax developed. Impression: Successful right sided thoracentesis. Signed: Johnie Dawn MDReport Verified Date/Time: 01/17/2018 16:56:30 Reading Location: [address] Reading Room RAD, CHEST, 1 VIEW, NON [id number] 16:49:00Reason for exam:->Post Thoracentesis Right Side Should this be performed at the bedside?->YesFINAL REPORT INDICATION: Post Thoracentesis Right Side COMPARISON: January 17 at 1:39 PM TECHNIQUE: Chest radiograph, single view, portable technique. FINDINGS / IMPRESSION: Moderate partially loculated right pleural effusion is not significantly changed in size after thoracentesis. No pneumothorax is demonstrated. Previously demonstrated convex contour just inferior to the a ortopulmonary window is no longer apparent and in retrospect may have been projectional. Left hilum and suprahilar lung contours now appear normal. Signed: Walter Trujillo MDReport Verified Date/Time: 01/17/2018 16:49:14 Reading Location: [facility] Reading Room BASI METABOLIC [id number] 14:51:00 Test Item Value Reference Range Interpretation Comments SODIUM (BEAKER) 138 meq/L 136-145 (test code = 381) POTASSIUM (BEAKER) 3.3 meq/L 3.5-5.1 L (test code = 379) CHLORIDE (BEAKER) 99 meq/L 98-107 (test code = 382) CO2 (BEAKER) (test 28 meq/L 22-29 code = 355) BLOOD UREA NITROGEN 9 mg/dL 7-21 (BEAKER) (test code = 354) CREATININE (BEAKER) 0.61 mg/dL 0.57-1.25 (test code = 358) GLUCOSE RANDOM 86 mg/dL 70-105 (BEAKER) (test code = 652) CALCIUM (BEAKER) 10.0 mg/dL 8.4-10.2 (test code = 697) EGFR (BEAKER) (test 98 mL/min/1.73 INSUFF ICIENT CLINICAL code = 1092) sq m DATA TO CALCULA TE ESTIMATED GFR. CREATINE KINASE (CK), TOTAL AND [id number] 14:41:00 Test Item Value Reference Range Interpretation Comments CREATINE KINASE TOTAL (BEAKER) 62 U/L 29-200 (test code = 380) CREATINE KINASE-MB (BEAKER) (test 1.3 ng/mL 0.0-6.6 code = 750) CREATINE KINASE-MB INDEX (BEAKER) 2.1 % (test code = 395) CK-MB Reference Range:<6.7 Normal6.7-10.0 Borderline>10.0 AbnormalTROPONIN [id number] 14:41:00 Test Item Value Reference Range Interpretation Comments TROPONIN I (BEAKER) (test code = 397) < ng/mL 0.00-0.03 Troponin I (TnI) levels must be interpreted in the context of the presenting symptoms and the clinical findings. Elevated TnI levels indicate myocardial damage, but are not specific for ischemic heart disease. Elevated TnI levels are seen in patients with other cardiac conditions (including myocarditis and congestive heart failure), and slight TnI elevations occur in patients with other conditions, including sepsis, renal failure, acidosis, acute neurological disease, and persistent tachyarrhythmia.B-TYPE NATRIURETIC FACTOR (BNP) 2018-01-17 14:40:00 Test Item Value Reference Range Interpretation Comments B-TYPE NATRIURETIC PEPTIDE (BEAKER) 13 pg/mL 0-100 (test code = 700) [id number] 14:13:00 Test Item Value Reference Range Interpretation Comments PROTIME (BEAKER) (test code = 15.1 seconds 11.7-14.7 H 759) INR (BEAKER) (test code = 370) 1.2 <=5.9 PARTIAL THROMBOPLASTIN TIME 28.1 seconds 22.5-36.0 (BEAKER) (test code = 760) RECOMMENDED COUMADIN/WARFARIN INR THERAPY RANGESSTANDARD DOSE: 2.0 - 3.0 Includes: PROPHYLAXIS forvenous thrombosis, systemic embolization; TREATMENT for venous thrombosis and/or pulmonary embolus.HIGH RISK: Target INR is 2.5-3.5 for patients with mechanical heart valves.CBC W/PLT COUNT & AUTO DIFFERENTIAL 2018-01-17 14:04:00 Test Item Value Reference Range Interpretation Comments WHITE BLOOD CELL COUNT (BEAKER) 6.7 K/ L 3.5-10.5 (test code = 775) RED BLOOD CELL COUNT (BEAKER) 5.25 M/ L 3.93-5.22 H (test code = 761) HEMOGLOBIN (BEAKER) (test code = 14.2 GM/DL 11.2-15.7 410) HEMATOCRIT (BEAKER) (test code = 42.8 % 34.1-44.9 411) MEAN CORPUSCULAR VOLUME (BEAKER) 81.5 fL 79.4-94.8 (test code = 753) MEAN CORPUSCULAR HEMOGLOBIN 27.0 pg 25.6-32.2 (BEAKER) (test code = 751) MEAN CORPUSCULAR HEMOGLOBIN CONC 33.2 GM/DL 32.2-35.5 (BEAKER) (test code = 752) RED CELL DISTRIBUTION WIDTH 13.2 % 11.7-14.4 (BEAKER) (test code = 412) PLATELET COUNT (BEAKER) (test 213 K/CU MM 150-450 code = 756) MEAN PLATELET VOLUME (BEAKER) 10.6 fL 9.4-12.3 (test code = 754) NUCLEATED RED BLOOD CELLS 0 /100 WBC 0-0 (BEAKER) (test code = 413) NEUTROPHILS RELATIVE PERCENT 70 % (BEAKER) (test code = 429) LYMPHOCYTES RELATIVE PERCENT 19 % (BEAKER) (test code = 430) MONOCYTES RELATIVE PERCENT 10 % (BEAKER) (test code = 431) EOSINOPHILS RELATIVE PERCENT 0 % (BEAKER) (test code = 432) BASOPHILS RELATIVE PERCENT 1 % (BEAKER) (test code = 437) NEUTROPHILS ABSOLUTE COUNT 4.67 K/ L 1.56-6.13 (BEAKER) (test code = 670) LYMPHOCYTES ABSOLUTE COUNT 1.30 K/ L 1.18-3.74 (BEAKER) (test code = 414) MONOCYTES ABSOLUTE COUNT (BEAKER) 0.66 K/ L 0.24-0.36 H (test code = 415) EOSINOPHILS ABSOLUTE COUNT 0.03 K/ L 0.04-0.36 L (BEAKER) (test code = 416) BASOPHILS ABSOLUTE COUNT (BEAKER) 0.05 K/ L 0.01-0.08 (test code = 417) IMMATURE GRANULOCYTES-RELATIVE 0 % 0-1 PERCENT (BEAKER) (test code = 2801) RAD, CHEST, 1 VIEW, NON [id number] 13:56:00Reason for exam:->CHEST PAINShould this be performed at the bedside?->YesFINAL REPORT INDICATION: CHEST PAIN COMPARISON: None. TECHNIQUE: Chest radiograph, single view, portable technique. FINDINGS / IMPRESSION: There is a moderate partially loculatedright pleural effusion. Convex contour just inferior to the aortopulmonary window, may represent enlarged pulmonary artery, aneurysm, lymphadenopathy, or mass. No discrete focal lung abnormality demonstrated. Heart shadow appears normal in size. Osseous structures unremarkable. Chest CT with intravenous contrast is recommended for further evaluation. Signed: Walter Trujillo MDReport Verified Date/Time: 01/17/2018 13:56:57 Reading Location: [facility] Mammo Reading Room
[2021-12-25] MEDS ORDERED: IPRATROPIUM BROM 0.5MG/2.5ML ONE (11:15)
[2021-12-25 11:26] LABS: Absolute Lymphocytes (CBC) 1.4 K/uL (0.7-4.9); Hematocrit 42.7 % (36.0-45.0); Lymphocytes % 20.3 % (15.3-44.8); MPV 8.7 fL (7.6-11.3); RBC Red Blood Cell Count 5.02 M/uL (3.86-4.86)
--- NOTE | 2021-12-25 11:27 | RAD REPORT ---
EXAM DESCRIPTION: RAD - Chest Single View - 12/25/2021 11:09 am CLINICAL HISTORY: DYSPNEA COMPARISON: Chest Single View dated 12/14/2017; Thorax Wo Con dated 12/13/2017 FINDINGS: Lines: None. Lungs: Presumably atelectasis as a result of the right pleural effusion. Pleural: Large right sided effusion. Small left effusion. Cardiac: Partially obscured. Bones: No acute fractures. Other: Surgical clips in the right axilla. IMPRESSION: Large right and small left pleural effusion. Presumably underlying atelectasis though th e patient has a history of breast cancer and so malignant effusion not excluded.
[2021-12-25 11:36] LABS: Protime INR 1.13
[2021-12-25 12:28] LABS: Albumin 3.4 g/dL (3.4-5.0); Bilirubin Direct 0.2 mg/dL (0-0.2); Bilirubin Total 0.5 mg/dL (0.2-1.0); Potassium 4.1 mmol/L (3.5-5.1); Protein, Total 7.3 g/dL (6.4-8.2)
--- NOTE | 2021-12-25 13:02 | RAD REPORT ---
EXAM DESCRIPTION: CT - Chest Angio - 12/25/2021 12:45 pm CLINICAL HISTORY: Chest pain COMPARISON: 2018 TECHNIQUE: Dynamically enhanced axial 3 mm thick images of the chest were obtained during administra tion of <100> mL Isovue 370 IV contrast. Coronal and oblique reconstruction images were generated and reviewed. Exam utilizes a protocol for optimal evaluation of pulmonary arterial tree. Maximum intensity projections 3D imaging was utilized All CT scans are performed using dose optimization technique as appropriate and may include automated exposure control or mA/KV adjustment according to patient size. FINDINGS: A pulmonary embolus is not seen. A thoracic aortic aneurysm is not noted. Large right pleural effusion. Several left pleural based masses. A pericardial effusion is not seen. Right lower lobe atelectasis IMPRESSION: Negative for a pulmonary embolism. Large right pleural effusion. Left pleural based masses likely metastatic disease
--- NOTE | 2021-12-25 13:58 | ER ---
Nurse's Notes [facility] Name: Roxana Pope Age: 71 yrs Sex: Female : 1950 Arrival Date: 12/25/2021 Time: 10:16 Bed 14 Private MD: Diagnosis: Right Pleural Effusion Presentation: 12/25 10:24 Chief complaint: Patient states: i am having trouble breathing for about 4 days ago. i tw2 have a little cough. i just feel out of breath. Coronavirus screen: difficulty breathing, Client presents with at least one sign or symptom that may indicate coronavirus-19. Standard/surgical mask placed on the client. Provider contacted for isolation considerations. Ebola Screen: Patient denies travel to an Ebola-affected area in the 21 days before illness onset. Initial Sepsis Screen: Does the patient meet any 2 criteria? HR > 90 bpm. No. Patient's initial sepsis screen is negative. Does the patient have a suspected source of infection? No. Patient's initial sepsis screen is negative. Risk Assessment: Do you want to hurt yourself or someone else? Patient reports no desire to harm self or others. Onset of symptoms was December 25, 2021. 10:24 Method Of Arrival: Ambulatory tw2 10:24 Acuity: AAKASH 3 tw2 Triage Assessment: 10:25 General: Appears in no apparent distress. well groomed, Behavior is calm, cooperative, tw2 appropriate for age. Pain: Denies pain. Respiratory: Reports shortness of breath at rest on exertion Onset: The symptoms/episode began/occurred 4 days ago, the patient has mild shortness of breath. Historical: - Allergies: 10:25 No Known Allergies; tw2 - Home Meds: 10:25 Lisinopril Oral [Active]; letrozole 2.5 mg oral tab 1 tab once daily [Active]; tw2 - PMHx: 10:25 Hypertension; tw2 - PSHx: 10:25 Cholecystectomy; hernia repair, abdominal; tumor removed, right breast; tw2 - Immunization history:: Adult Immunizations Client reports receiving the 2nd dose of the Covid vaccine. - Social history:: Smoking status: Patient denies any tobacco usage or history of. Screenin:46 Abuse screen: Denies threats or abuse. Nutritional screening: No deficits noted. tw2 Tuberculosis screening: No symptoms or risk factors identified. Fall Risk None identified. Assessment: 11:54 Reassessment: No changes from previously documented assessment. Patient and/or family jg9 updated on plan of care and expected duration. Pain level reassessed. Patient is alert, oriented x 3, equal unlabored respirations, skin warm/dry/pink. Cardiovascular: No deficits noted. Rhythm is sinus rhythm. Respiratory: No deficits noted. Airway is patent Respiratory effort is even, unlabored, Breath sounds are clear in left upper lobe, left lower lobe, left posterior upper lobe and left posterior lower lobe Breath sounds are diminished in right posterior upper lobe, right posterior middle lobe and right posterior lower lobe. 13:15 Reassessment: Patient states feeling better. Patient states symptoms have improved. jg9 13:39 Reassessment: patient requesting a 2 nd breathing tx. jg9 Vital Signs: 10:24 BP 189 / 101; Pulse 105; Resp 22; Temp 98.2(TE); Pulse Ox 96% on R/A; Weight 66.22 kg; tw2 Height 4 ft. 11 in. (149.86 cm); Pain 0/10; 11:00 BP 170 / 83; Pulse 84; Resp 17 S; Pulse Ox 95% on R/A; jg9 11:30 BP 147 / 84; Pulse 78; Resp 22; Pulse Ox 100% on Nebulizer Mask; jg9 11:47 BP 128 / 99; Pulse 81; Resp 17 S; Pulse Ox 95% on R/A; jg9 13:00 BP 180 / 90; Pulse 88; Resp 21; Pulse Ox 94% on R/A; jg9 14:00 BP 161 / 100; Pulse 86; Resp 22 S; Pulse Ox 100% on R/A; jg9 15:00 BP 166 / 104; Pulse 91; Resp 23 S; Pulse Ox 95% on R/A; jg9 17:00 BP 140 / 90; Pulse 88; Resp 14 S; Pulse Ox 99% ; jg9 10:24 Body Mass Index 29.49 (66.22 kg, 149.86 cm) tw2 ED Course: 10:16 Patient arrived in ED. bp1 10:21 K[facility] Perez [facility] jh7 10:21 Jh Loera MD is Attending Physician. jh7 10:25 Triage completed. tw2 10:27 Arm band placed on. tw2 10:28 Placed in gown. Bed in low position. Call light in reach. Client placed on continuous tw2 cardiac and pulse oximetry monitoring. NIBP monitoring applied. 10:44 Kacey La, RN is Primary Nurse. jg9 11:11 XRAY CXR (1 view) In Process Unspecified. EDMS 11:49 Lab(s) recollected, by me, sent to lab. Inserted saline lock: 22 gauge in right dh3 antecubital area, using aseptic technique. Blood collected. 12:47 Chest Angio In Process Unspecified. EDMS 13:14 Nurse Practitioner and/or Physician Lead Programmer to see patient. jg9 13:56 Erinn Mendiola MD is Hospitalizing Provider. [facility] 17:19 No provider procedures requiring assistance completed. jg9 17:19 Patient admitted, IV remains in place. jg9 Administered Medications: 11:13 Drug: AtroVENT (ipratropium) Aerosol 0.5 mg Route: Inhalation; j9 11:53 Follow up: Response: No adverse reaction j9 13:39 Drug: AtroVENT (ipratropium) Aerosol 0.5 mg Route: Inhalation; jg9 Medication: 11:56 VIS not applicable for this client. jg9 Outcome: 13:57 Decision to Hospitalize by Provider. [facility] 17:19 Admitted to Med/surg accompanied by nurse, via wheelchair, room 220, Report called to jg9 JESUS Ball 17:19 Condition: stable 17:19 Patient left the ED. jg9 Signatures: Dispatcher [employer] EDMO Sonia Florian, RN RN tw2 Carolyn Christian [facility] Merlene Breen [facility] Kacey La, RN RN jg9 Kacey Perez, DRYWALL HANGER DRYWALL HANGER [facility]
--- NOTE | 2021-12-25 13:58 | EDPHYS ---
Physician Documentation [facility] Name: Roxana Pope Age: 71 yrs Sex: Female : 1950 Arrival Date: 12/25/2021 Time: 10:16 Bed 14 Private MD: LEN Physician Jh Loera HPI: 12/25 10:30 This 71 yrs old Female presents to ER via Ambulatory with complaints of jh7 Shortness Of Breath. 10:30 The patient has shortness of breath with light activity. Onset: The symptoms/episode jh7 began/occurred 2 week(s) ago, and became worse. Associated signs and symptoms: Pertinent positives: non-productive cough, Pertinent negatives: chest pain, dizziness, fever, loss of consciousness, nausea, vomiting. Patient presents for progressive shortness of breath and cough over the past 2 weeks. She states that the shortness of breath worsens with activities. She has a history of hypertension and breast cancer.. Historical: - Allergies: 10:25 No Known Allergies; tw2 - Home Meds: 10:25 Lisinopril Oral [Active]; letrozole 2.5 mg oral tab 1 tab once daily [Active]; tw2 - PMHx: 10:25 Hypertension; tw2 - PSHx: 10:25 Cholecystectomy; hernia repair, abdominal; tumor removed, right breast; tw2 - Immunization history:: Adult Immunizations Client reports receiving the 2nd dose of the Covid vaccine. - Social history:: Smoking status: Patient denies any tobacco usage or history of. ROS: 10:25 Constitutional: Negative for fever, chills, and weight loss, Neck: Negative for injury, jh7 pain, and swelling, Cardiovascular: Negative for chest pain, palpitations, and edema, Abdomen/GI: Negative for abdominal pain, nausea, vomiting, diarrhea, and constipation, Back: Negative for injury and pain, Skin: Negative for injury, rash, and discoloration, Neuro: Negative for headache, weakness, numbness, tingling, and seizure. 10:25 Respiratory: Positive for cough, with no reported sputum, shortness of breath, on exertion. 10:25 All other systems are negative. Exam: 10:25 Constitutional: This is a well developed, well nourished patient who is awake, alert, jh7 and in no acute distress. Neck: Trachea midline, no thyromegaly or masses palpated, and no cervical lymphadenopathy. Supple, full range of motion without nuchal rigidity, or vertebral point tenderness. No Meningismus. Cardiovascular: Regular rate and rhythm with a normal S1 and S2. No gallops, murmurs, or rubs. Normal PMI, no JVD. No pulse deficits. Abdomen/GI: Soft, non-tender, with normal bowel sounds. No distension or tympany. No guarding or rebound. No evidence of tenderness throughout. Skin: Warm, dry with normal turgor. Normal color with no rashes, no lesions, and no evidence of cellulitis. MS/ Extremity: Pulses equal, no cyanosis. Neurovascular intact. Full, normal range of motion. Neuro: Awake and alert, GCS 15, oriented to person, place, time, and situation. Motor strength 5/5 in all extremities. Sensory grossly intact. Normal gait. 10:25 Respiratory: the patient does not display signs of respiratory distress, Respirations: normal, Breath sounds: decreased breath sounds, are heard in the right middle lobe and right lower lobe. 10:25 ECG was reviewed by the Attending Physician. [facility] Vital Signs: 10:24 BP 189 / 101; Pulse 105; Resp 22; Temp 98.2(TE); Pulse Ox 96% on R/A; Weight 66.22 kg; tw2 Height 4 ft. 11 in. (149.86 cm); Pain 0/10; 11:00 BP 170 / 83; Pulse 84; Resp 17 S; Pulse Ox 95% on R/A; jg9 11:30 BP 147 / 84; Pulse 78; Resp 22; Pulse Ox 100% on Nebulizer Mask; jg9 11:47 BP 128 / 99; Pulse 81; Resp 17 S; Pulse Ox 95% on R/A; jg9 13:00 BP 180 / 90; Pulse 88; Resp 21; Pulse Ox 94% on R/A; jg9 14:00 BP 161 / 100; Pulse 86; Resp 22 S; Pulse Ox 100% on R/A; jg9 15:00 BP 166 / 104; Pulse 91; Resp 23 S; Pulse Ox 95% on R/A; jg9 17:00 BP 140 / 90; Pulse 88; Resp 14 S; Pulse Ox 99% ; jg9 10:24 Body Mass Index 29.49 (66.22 kg, 149.86 cm) tw2 MDM: 10:22 Patient medically screened. [facility] 13:38 Differential diagnosis: pneumonia, pulmonary edema, Pulmonary Embolism Pleural jh7 effusion. Data reviewed: vital signs, nurses notes, lab test result(s), EKG, radiologic studies, CT scan, plain films. Data interpreted: Pulse oximetry: is 96 %. Interpretation: normal. Counseling: I had a detailed discussion with the patient and/or guardian regarding: the historical points, exam findings, and any diagnostic results supporting the discharge/admit diagnosis, lab results, radiology results, the need for further work-up and treatment in the hospital. Physician consultation: Erinn Mendiola MD was contacted at 13:38, regarding admission, and will see patient. ED course: Patient remained stable throughout her ER visit. Explained to her that she had a large right pleural effusion and required admission. The patient stated she felt better after the breathing treatment, and understood her need for admission. The accepting physician was Dr. Mendiola. The patient was admitted under inpatient status. 12/25 10:38 Order name: BMP; Complete Time: 13:35 [facility] 12/25 10:38 Order name: CBC with Diff; Complete Time: 11:33 [facility] 12/25 10:38 Order name: D-Dimer; Complete Time: 11:43 [facility] 12/25 10:38 Order name: Hepatic Function; Complete Time: 13:35 [facility] 12/25 10:38 Order name: Magnesium; Complete Time: 13:35 [facility] 12/25 10:38 Order name: NT PRO-BNP; Complete Time: 13:35 [facility] 12/25 10:38 Order name: PT-INR; Complete Time: 11:43 [facility] 12/25 10:38 Order name: Ptt, Activated; Complete Time: 11:43 [facility] 12/25 10:38 Order name: Flu; Complete Time: 13:35 [facility] 12/25 10:38 Order name: SARS-COV-2 RT PCR (Document "Date of Onset" if Symptomatic); Complete Time: [facility] 13:35 12/25 16:15 Order name: CBC with Automated Diff EDMS 12/25 16:15 Order name: CBC with Automated Diff EDMS 12/25 16:15 Order name: Comprehensive Metabolic Panel EDMS 12/25 16:15 Order name: Comprehensive Metabolic Panel EDMS 12/25 10:38 Order name: XRAY CXR (1 view); Complete Time: 11:33 [facility] 12/25 10:38 Order name: EKG; Complete Time: 10:39 [facility] 12/25 10:38 Order name: Cardiac monitoring; Complete Time: 11:07 [facility] 12/25 10:38 Order name: EKG - Nurse/Tech; Complete Time: 11:07 [facility] 12/25 10:38 Order name: IV Saline Lock; Complete Time: 11:53 [facility] 12/25 10:38 Order name: Labs collected and sent; Complete Time: 11:07 [facility] 12/25 10:38 Order name: O2 Per Protocol; Complete Time: 11:07 [facility] 12/25 10:38 Order name: O2 Sat Monitoring; Complete Time: 11:08 [facility] 12/25 11:44 Order name: CT Chest Angio [facility] 12/25 11:48 Order name: Chest Angio; Complete Time: 13:35 [facility] 12/25 16:15 Order name: CONS Physician Consult [facility] 12/25 16:15 Order name: CONS Physician Consult [facility] 12/25 16:15 Order name: Heart Healthy [facility] 12/25 16:15 Order name: Thoracentesis w/ US Guide [facility] 12/25 16:15 Order name: Thoracentesis w/ US Guide [facility] 12/25 11:32 Order name: Labs - recollect needed: recollect c7; Complete Time: 11:53 bd EC:25 Rate is 83 beats/min. Rhythm is regular. QRS [place] is Normal. [place] interval is normal. QRS jh7 interval is normal. QT interval is normal. T waves are Normal. No ST changes noted. Clinical impression: Normal ECG. Administered Medications: 11:13 Drug: AtroVENT (ipratropium) Aerosol 0.5 mg Route: Inhalation; jg9 11:53 Follow up: Response: No adverse reaction 9 13:39 Drug: AtroVENT (ipratropium) Aerosol 0.5 mg Route: Inhalation; jg9 Disposition Summary: 12/25/21 13:57 Hospitalization Ordered Hospitalization Status: Inpatient Admission [facility] Provider: Erinn Mendiola [facility] Location: Telemetry/MedSurg (Inpatient) [facility] Condition: Stable [facility] Problem: new [facility] Symptoms: have improved [facility] Bed/Room Type: Standard [facility] Room Assignment: 220(12/25/21 16:40) dw Diagnosis - Right Pleural Effusion [facility] Forms: - Medication Reconciliation Form [facility] - SBAR form [facility] Signatures: Dispatcher [employer] Amelia Banda Diana RN RN dw Sonia Florian RN RN tw2 Kacey La RN RN jg9 Kacey Perez, MUKUL GILMAN [facility] Corrections: (The following items were deleted from the chart) 16:40 13:57 [facility] dw
[2021-12-25] MEDS ORDERED: ACETAMINOPHEN 500 MG TAB PO PRN (16:11)
[2021-12-25] MEDS ORDERED: MORPHINE 2 MG/ML SYR IV PRN (16:11)
[2021-12-25] MEDS ORDERED: ONDANSETRON 4 MG/2 ML VIAL IV PRN (16:11)
[2021-12-25 17:58] VITALS: BMI 29.5
[2021-12-25] MEDS ORDERED: cloNIDine HCL 0.1 MG TAB PO ONE (19:00)
[2021-12-26 04:16] LABS: Absolute Lymphocytes (CBC) 1.7 K/uL (0.7-4.9); Hematocrit 37.1 % (36.0-45.0); Lymphocytes % 25.8 % (15.3-44.8); MPV 8.3 fL (7.6-11.3); RBC Red Blood Cell Count 4.38 M/uL (3.86-4.86)
[2021-12-26 04:33] LABS: Bilirubin Total 0.7 mg/dL (0.2-1.0); Potassium 3.8 mmol/L (3.5-5.1); Protein, Total 6.6 g/dL (6.4-8.2)
--- NOTE | 2021-12-26 09:33 | P.CNS ---
Date of Consult: 12/26/21 Reason for Consult: Right-sided pleural effusion Chief Complaint: Shortness of breath History of Present Illness: Patient is 71 years of age with a history of breast cancer diagnosed 5 years ago hormonal therapy became short of breath worsening over the past 2 weeks denies any fever chills cussed with the doctors previously very active follow-up regularly with her oncologist found to have a massive right-sided pleural effusion with mets to the left pleural surface Allergies No Known Allergies Allergy (Verified 12/14/17 00:09) Home Medications: Letrozole [Femara] 2.5 mg PO NOON 12/25/21 Lisinopril [Zestril] 10 mg PO DAILY 12/25/21 - Past Medical/Surgical History Diabetic: No -: Hypertension -: Breast cancer -: Hernia repair -: Cholecystectomy - Family History Sister Medical History: Heart disease Brother Medical History: Heart disease, Diabetes Father Medical History: Heart disease Uncle Medical History: Heart disease - Social History Alcohol use: No CD- Drugs: No Caffeine use: Yes Place of Residence: Home Review of Systems 10-point ROS is otherwise unremarkable Respiratory: Shortness of Breath Physical Examination Temp Pulse Resp BP Pulse Ox 97.1 F 74 16 147/73 H 93 12/26/21 08:00 12/26/21 08:00 12/26/21 08:00 12/26/21 08:00 12/26/21 08:00 General: Alert, Oriented x3, Mild distress Respiratory: Diminished (R lung) Cardiovascular: No edema, Normal S1 S2 Gastrointestinal: Normal bowel sounds, Soft and benign Laboratory Data (last 24 hrs) 12/25/21 11:49: Sodium 137, Potassium 4.1, BUN 7, Creatinine 0.59, Glucose 97, Magnesium 2.0, Total Bilirubin 0.5, AST 20, ALT 18, Alkaline Phosphatase 92 12/25/21 10:55: PT 12.5, INR 1.13, APTT 34.8 12/25/21 10:55: WBC 7.0, Hgb 14.0, Hct 42.7, Plt Count 256 - Problems (1) Pleural effusion, malignant Onset Date: 12/14/17 Current Visit: No Status: Acute Plan: Patient is 71 years of age admitted with a massive right-sided pleural effusion likely malignant with mets to the left pleural surface as well as patient is currently in ultrasound for thoracentesis and for discharge most likely she is going to need a Pleurx catheter placed to follow-up with her oncologist JACQUI labs all reviewed vital signs stable possible discharge after thoracentesis
--- NOTE | 2021-12-26 10:08 | RAD REPORT ---
EXAM DESCRIPTION: US - Thoracentesis w/ US Guide - 12/26/2021 9:13 am CLINICAL HISTORY: Large right pleural effusion COMPARISON: CT chest 12/25/2021 TECHNIQUE: The patient presents for ultrasound-guided thoracentesis. The procedure, risks and alter natives were discussed with the patient in detail. Oral and written consent were obtained. Time out procedure was performed. The patient had no contraindicated allergy or medication history. PT, INR v alues within acceptable limits. Preliminary sonographic evaluation identified lower right chest access site. The skin and deeper tis sues were anesthetized with 1 percent lidocaine. Under direct sonographic visualization, a 6 [place] thoracentesis catheter was advanced into the pleural cavity. Approximately 15 mL of pleural fluid ret ained for laboratory studies. Large volume drainage was initiated. Approximately 1.2 liters of pleura l fluid removed. At the conclusion of the procedure, catheter was withdrawn and a bandage placed at the puncture site. Postprocedure care and precaution instructions were given to the patient. Patient was returned [facility] floor for continued care. IMPRESSION: Ultrasound-guided right-sided thoracentesis performed as detailed.
[2021-12-26] MEDS: lisinopriL 5 MG TAB PO SCH (10:20)
[2021-12-26 11:22] LABS: Body Fluid WBC 823 /mm^3
[2021-12-26 12:12] LABS: Appearance TURBID (CLEAR); Body Fluid Source PLEURAL; Color of fluid Red (COLORLESS)
[2021-12-27 04:13] LABS: Absolute Lymphocytes (CBC) 1.9 K/uL (0.7-4.9); Hematocrit 36.9 % (36.0-45.0); Lymphocytes % 25.9 % (15.3-44.8); MPV 8.9 fL (7.6-11.3); RBC Red Blood Cell Count 4.37 M/uL (3.86-4.86)
[2021-12-27 04:20] LABS: Albumin 2.9 g/dL (3.4-5.0); Bilirubin Total 0.6 mg/dL (0.2-1.0); Potassium 3.5 mmol/L (3.5-5.1); Protein, Total 6.5 g/dL (6.4-8.2)
--- NOTE | 2021-12-27 09:50 | RAD REPORT ---
EXAM DESCRIPTION: RADChest Single View12/27/2021 9:02 am CLINICAL HISTORY: Pleural effusion status post thoracentesis COMPARISON: December 26, 2021 FINDINGS: A pneumothorax is not visualized status post thoracentesis. A large amount of the pleural effusion has been evacuated
[2021-12-27] MEDS: lisinopriL 5 MG TAB PO SCH (10:34)
[2021-12-27 11:23] VITALS: O2SAT 97
[2021-12-27 12:02] VITALS: BP 112/64; TEMP 97.7
--- NOTE | 2021-12-27 14:34 | EKG ---
Test Date: 2021-12-25 Test Time: 11:05:31 Dispatcher Relay: SUDHIR MEASUREMENT RESULTS: Intervals: Rate: 83 ME: 122 QRSD: 66 QT: 376 QTc: 441 [place]: P: 64 ME: 122 QRS: 30 T: 41 INTERPRETIVE STATEMENTS: Normal sinus rhythm Normal ECG Compared to ECG 12/13/2017 19:15:58 No significant changes Electronically Signed On 12-27-21 14:33:19 CDT by Jorge A Person
--- NOTE | 2021-12-27 15:27 | CON ---
Date of Consultation: 12/27/2021 Brief History Of Present Illness: Patient is a 71-year-old female with a history of breast cancer di agnosed 5 years ago, on hormonal therapy, who believes she was getting worsening shortness of breath over the course of 2 weeks. She denied any other associated complaints associated with this. She mcknight s an oncologist who discovered that she had a massive right-sided pleural effusion with mets to the l eft pleural surface as well. I am consulted to see the patient to discuss the possible need for long -term PleurX thoracic catheter placement in a nonemergent setting. Past Medical History: Hypertension, breast cancer, hernia. Past Surgical History: Includes hernia repair, cholecystectomy. Home Medications: Include Femara, Zestril. Allergies: NO KNOWN DRUG ALLERGIES. Social History: She denies smoking, alcohol, or recreational drug use. Review of Systems: Ten-point review of systems other than HPI, she only had some mild shortness of breath, which is sign ificantly improved. I saw her after she had a thoracentesis here in the hospital. She had significa nt symptomatic improvement after her thoracentesis here. Physical Examination: At the time of my examination. General: She is thin and frail and appears mildly cachectic. HEENT: She is, otherwise, normocephalic. Sclerae icteric. Mucous membranes are moist. Oropharynx clear. Neck: Supple without JVD. Chest: Normal to expansion and excursion. Cardiovascular: Regular rate and rhythm. Pulmonary: Clear to auscultation bilaterally. Abdomen: Soft. Extremities: No clubbing, cyanosis, or edema. Skin: Warm and dry. Psychiatric: She is appropriate and conversive and oriented to person, place, time, and event. She has good judgment and insight by her interaction with me. Imaging And Laboratory Exam: White blood cell count of 6.6, hemoglobin is 12.4, hematocrit 37.1, marsha telet count was 219. Her D-dimer was 2334. Sodium 139, potassium 3.9, chloride 106, carbon dioxide 26, BUN 6, creatinine 0.4, glucose is 98, magnesium was 2.0, total bilirubin 0.7, AST 16, ALT 15, alk amie phosphatase 82. She had imaging which included a CTA of the chest, which is officially read as negative for pulmonary embolism. A large right pleural effusion. Left pleural base masses, likely metastatic disease. 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 1.IV fluid hydration. 2.Appropriate medical management. 3.Pulmonology consult with Dr. Staton. 4.I have explained the risks, benefits, and alternatives of PleurX catheter placement including, but not limited to, bleeding, infection, damage to surrounding tissues, need for further operation and p rocedures. Patient will meet with me likely in my clinic to discuss placement of a PleurX catheter, after she has a discussion with her family and starts having resumption of her symptoms as described and after she reaccumulates fluid, should this occur, as such I will remain available for her in the future and we will sign off from the case at this point. Thank you for this interesting consult. JUSTUS/PAULA Voice ID: [id number] Report ID: [id number]
== END 2021-12-27 12:30 | disposition home health service (06) | DRG 181 ==
LOC: ER 10:14 → ERHOLD 16:11 → 2ND 17:46
PROVIDERS: ADMIT Hospitalist; ATTEND Hospitalist
PROC: 0W993ZX Drainage of Right Pleural Cavity, Percutaneous Approach, Diagnostic (ICD-10-PCS; principal; 2021-12-26)
DX: C38.4 Malignant neoplasm of pleura (principal); J91.0 Malignant pleural effusion; I10 Essential (primary) hypertension; Z85.3 Personal history of malignant neoplasm of breast; Z79.890 Hormone replacement therapy; Z20.822 Contact with and (suspected) exposure to COVID-19
CPT/HCPCS: 32555; 36415; 71045; 71275; 80048; 80053; 80076; 82042; 82945; 83615; 83735; 83880; 85025; 85379; 85610; 85730; 87070; 87077; 87186; 87804; 88108; 88305; 89050; 93005; 99285; Q9967; U0003